=== PATIENT | female | born 1955 | race Caucasian/White ===

== ENCOUNTER 2019-03-04 05:12 | Observation (INO) ==
--- NOTE | 2019-02-19 14:08 | Anesthesiology Consultation ---
Date of Service February 19, 2019 Assessment & Plan (1) Encounter for pre-operative examination: Chart Review Chart Review: Pending: Refer to Additional Notes / Consult section and Patient NOT seen in Pre Admission Testing Consults Requested medical (per surgeon) Teaching & Discussion med teaching by PAT nurse via phone History Surgery Operation Date: 03/04/19 07:00 Proposed Procedures p Laparoscopic Cholecystectomy, Possible Cholanigiogram - Luke Mullins, DO, FACS Height/Weight Height: 5 ft 2.5 in Weight: 61.689 kg Allergies Allergy/AdvReac Type Severity Reaction Status Date / Time No Known Allergies Allergy Verified 02/18/19 11:12 Medications Home Medications Medication Instructions Recorded Confirmed Last Taken amlodipine 5 mg PO QAM 02/18/19 02/18/19 Unknown lisinopril 20 mg PO HS 02/18/19 02/18/19 Unknown [id number] carb-vit K 1 tab PO QAM 02/18/19 02/18/19 Unknown [Women's Multivitamin] Past Medical History Medical History Cervical cancer Hypertension Thyroid nodule BENIGN BIOPSY Past Family History Family History Mother Diabetes Heart disease Cancer Father Diabetes Heart disease Brother Hypertension Stroke Cancer Brother Hypertension Brother Hypertension Brother Hypertension Daughter Breast cancer Past Surgical History Surgical History H/O total hysterectomy History of section History of conization of cervix History of tooth extraction Social History Smoking Status: Current every day smoker tobacco type: cigarettes Smoking cigarettes per day: 20 CIG DAILY Do You Dip or Chew Tobacco: No Hx Alcohol Use: Yes Alcohol type: hard liquor alcohol intake frequency: holidays/special occasions only Hx Substance Use: No substance use type: does not use Testing Laboratory Results Laboratory Tests 01/01/19 09:32 WBC 7.29 Hgb 16.7 H Hct 45.8 Plt Count 277 Laboratory Tests 01/01/19 09:32 Sodium 141 Potassium 3.8 Chloride 108 H Carbon Dioxide 26 BUN 9 Creatinine 0.60 Glucose 113 H TSH 1.150 Electrocardiogram Date: 01/22/19 Findings: + NSR @ (87) NSTWA Other Testing 01/13/[address]:mild cardiac enlargement. mild emphysema. NAD 01/05/19 Carotid Doppler: No HD significant stenosis B/L
[2019-03-04] MEDS ORDERED: LR 15ML/HR IV SCH (06:00)
[2019-03-04] MEDS ORDERED: cefOXitin 2,000 MG in DEXTROSE 5% 50 ML IV SCH (06:00)
[2019-03-04] MEDS ORDERED: LIDOCAINE HCL 2% 2 ML VIAL/AMP(20MG/ML) INFIL ONE (06:20)
[2019-03-04] MEDS ORDERED: NEOSTIGMINE METHYLSULFATE 5 MG/5 ML SYR ONE (06:20)
[2019-03-04] MEDS ORDERED: ROCURONIUM BROMIDE 10 MG/ML 5 ML VIAL ONE (06:20)
[2019-03-04] MEDS ORDERED: PROPOFOL IV EMULSION 10 MG/ML 20 ML VIAL IV ONE (06:20)
[2019-03-04] MEDS ORDERED: GLYCOPYRROLATE 0.2 MG/ML VIAL ONE (06:20)
[2019-03-04] MEDS ORDERED: ONDANSETRON INJ 2 MG/ML 2 ML VIAL ONE (06:20)
[2019-03-04] MEDS ORDERED: DEXAMETHASONE SOD INJ 4 MG/ML VIAL ONE (06:20)
[2019-03-04] MEDS ORDERED: MIDAZOLAM HCL 1 MG/ML 2ML VIAL ONE (06:21)
[2019-03-04] MEDS ORDERED: fentaNYL citrate 100 MCG/2 ML VIAL ONE ×4 (06:21→11:11)
[2019-03-04] MEDS ORDERED: ePHEDrine sulfate 50 MG/ML AMP IV PRN (06:26)
[2019-03-04] MEDS ORDERED: ONDANSETRON INJ 2 MG/ML 2 ML VIAL IV PRN ×2 (06:26→11:17)
[2019-03-04] MEDS ORDERED: ATROPINE SULFATE 0.1 MG/ML 10ML SYR IV PRN (06:26)
[2019-03-04] MEDS ORDERED: fentaNYL citrate 100 MCG/2 ML VIAL IV PRN (06:26)
[2019-03-04] MEDS ORDERED: BUPIVACAINE 0.5 % 5 MG/1 ML MPF 30ML VIAL ONE (06:39)
[2019-03-04] MEDS ORDERED: CONRAY 60% 50 ML VIAL ONE (06:39)
--- NOTE | 2019-03-04 07:06 | History & Physical Bridge Note ---
Date of Service March 04, 2019 History & Physical Bridge Note I have examined the patient, reviewed the History & Physical and in the interval since the performance of the History & Physical I have noted the following changes of clinical significance: no changes noted
[2019-03-04] MEDS ORDERED: ePHEDrine sulfate 50 MG/ML SYR ONE (07:34)
[2019-03-04] MEDS ORDERED: PHENYLEPHRINE 100MCG/ML 5ML SYR ONE (09:50)
--- NOTE | 2019-03-04 10:15 | Operative Report ---
Post Operative Report Pre & Post Diagnosis Operation Date: 03/04/19 07:00 Pre-Op Diagnosis: Cholelithiasis Post-Op Diagnosis: Chronic cholecystitis and cholelithiasis, abdominal adhesions Procedure Operation Date: 03/04/19 07:00 Actual Procedures p Laparoscopic Cholecystectomy, laparoscopic lysis of adhesions- Luke Mullins DO, FELICIA Surgeon Luke Mullins DO, FACS Continuous Process Machine Operator Germania Ortiz Estimated Blood Loss 8 Findings Consistent with Post-Op Diagnosis Significantly inflamed gallbladder filled with stones. Attempted to identify critical view of safety, however it appeared that we are tenting the bile duct. Therefore performed dome down dissection. The gallbladder tore during retraction, and multiple stones were placed in Endo Catch bag and removed. Dissected down to narrowing of the infundibulum. Cystic artery doubly clipped and divided. Rodrigez loaded Endo JOSHUA stapler used to divide gallbladder at the infundibulum. Gallbladder was opened on the back table and appeared to have cystic duct lumen in the staple line. Hemostasis appeared good. The right upper quadrant was irrigated. 10 mm flat TED drain placed. Specimens Gallbladder Drains 10 mm TED drain in gallbladder fossa Anesthesia Type General Complications none Disposition Accompanied Patient To Recovery: No Disposition: Recovery Room Indications 63-year-old female with symptomatic cholelithiasis, plan for laparoscopic cholecystectomy with possible cholangiogram. The risks of the procedure were discussed, all questions were answered, and the patient agreed to proceed with surgery as planned. Description of Procedure The patient was properly identified, consented, and taken to the operating room where she was placed in the supine position. General endotracheal anesthesia was induced. SCDs and a safety belt were placed. Preoperative antibiotics were administered. The patient's abdomen was prepped and draped in the standard sterile fashion. A surgical timeout was performed and all parties were in agreement that this was the correct patient and procedure to be performed and we continued as planned. An incision was made superior and to the left of the umbilicus overlying the rectus muscle and the Veress needle was inserted. Saline drop test confirmed entry into the peritoneum. The abdomen was insufflated with carbon dioxide which the patient tolerated without incident. The abdomen was then entered using the Optiview technique and a 5 mm trocar. The laparoscope was inserted and no damage from initial trocar or Veress needle placement was noted, no gross abnormalities were noted within the 4 quadrants of the abdomen. An 11 mm port was placed in the subxiphoid position and two 5 mm ports were then placed in the right subcostal position. The patient was placed in reverse Trendelenburg position and rotated towards the left. There was some omental adhesions to her anterior abdominal wall from prior surgery and these were taken down with blunt dissection. The gallbladder was significantly inflamed and contracted. Omental adhesions were taken down with blunt dissection and electrocautery. The dome of the gallbladder was retracted towards the left upper quadrant and the infundibulum was retracted toward the right lower quadrant revealing Calot's triangle. Peritoneal attachments were taken down with electrocautery and blunt dissection. During retraction the gallbladder began to tear. The gallbladder appeared to be completely full of stones both large and small. These were placed in an Endo Catch bag and removed through the subxiphoid port. I attempted to identify critical view of safety, but it appeared that we are tenting the common bile duct. Then decided to pe rform a dome down technique. We started dissection of the gallbladder off of the gallbladder fossa starting at the dome of the gallbladder and working away towards the infundibulum. The cystic artery was circumferentially dissected, and was then doubly clipped and divided. We were able to dissect the gallbladder down to its narrowing near the infundibulum. I attempted to tease out the cystic duct, however it appeared to be significantly inflamed in this area. Since the gallbladder continue to tear all the gallstones were removed, I was able to visualize a small punctate opening. I attempted to perform a cholangiogram to this but was unable to feed the catheter through it. Then decided to divide the gallbladder at the infundibulum. The 11 mm port was switched out for a 12 mm port. A rodrigez loaded 45 mm Endo JOSHUA stapler was then used to divide the gallbladder at the infundibulum and cystic duct junction. The gallbladder was placed in an Endo Catch bag and removed. We opened it on the back table and were able to identify narrowing into a lumen that appeared to be the cystic duct. The right upper quadrant was irrigated and hemostasis was found to be good. A 10 mm flat TED drain was placed into the gallbladder fossa and exited through the right subcostal incision. This was secured in place with a 2-0 nylon suture. The subxiphoid port site fascia was closed with 0 Vicryl s uture using the Omer-Elieser device. 5 mm trochars were removed under direct visualization and the abdomen was allowed to collapse. The wound was irrigated, and the skin of all ports was closed with 4-0 Monocryl subcuticular sutures. Dermabond was placed over the wounds and a drain dressing was placed. The patient was extubated in the operating room and taken to the PACU where she recovered without apparent incident. All sponge, instrument and needle counts were correct at the conclusion of the procedure. The patient tolerated the procedure well. The physician's assistant city attorney was present and scrubbed for the entirety of the case and was essential in positioning the patient, prepping and draping, retraction and exposure, driving the laparoscope, removal of the gallbladder, closure the incisions, and placement of the dressings. I attest to the content of the Intraoperative Record and any orders documented therein. Any exceptions are noted below.
--- NOTE | 2019-03-04 11:05 | Anesthesiology Progress Note ---
Date of Service March 04, 2019 Anesthesia Post Procedure Vital Signs Vital Signs: Temp Pulse Pulse Resp BP Pulse Ox 03/04/19 10:45 97.9 F 97 H 19 127/71 94 03/04/19 10:35 88 20 148/78 H 99 03/04/19 10:25 103 H 17 123/88 97 03/04/19 10:17 99.3 F 94 H 18 125/87 94 03/04/19 05:57 97.9 F 81 16 154/96 H 99 Pain Intensity Right Abdomen: Pain Intensity: 1 Transfer of Care Handoff Completed per policy Notes Mental Status: alert / awake / arousable and participated in evaluation Patient Amnestic to Procedure: Yes Nausea / Vomiting: adequately controlled Pain: adequately controlled Airway Patency, RR, SpO2: stable & adequate BP & HR: stable & adequate Hydration State: stable & adequate Anesthetic Complications: no major complications apparent and Pt Satisfied with anesthetic care
[2019-03-04] MEDS ORDERED: MoRPHine SULFATE 2 MG/ML CARP IV PRN (11:17)
[2019-03-04] MEDS ORDERED: OXYCODONE/ACETAMINOPHEN 5mg/325mg TAB PO PRN ×2 (11:17)
[2019-03-04] MEDS ORDERED: ACETAMINOPHEN 325 MG TAB PO PRN (11:17)
[2019-03-04] MEDS ORDERED: MoRPHine SULFATE 4 MG/ML 1 ML CARP\\VIAL IV PRN (11:17)
[2019-03-04] MEDS: LACTATED RINGER'S 1,000 ML IV SCH (12:37)
[2019-03-04] MEDS: cefOXitin 2,000 MG in DEXTROSE 5% 50 ML IV SCH ×2 (14:04→20:11)
[2019-03-05] MEDS: cefOXitin 2,000 MG in DEXTROSE 5% 50 ML IV SCH ×2 (01:29→08:25)
[2019-03-05] MEDS: LACTATED RINGER'S 1,000 ML IV SCH (01:29)
[2019-03-05 07:20] LABS: Basophils # (auto) 0.01 K/uL (0-0.2); Basophils % (auto) 0.1 %; Eosinophils # (auto) 0.02 K/uL (0-0.5); Eosinophils % (auto) 0.1 %; Hematocrit (blood only) 38.3 % (37-47); Hemoglobin 13.4 g/dL (12.0-16.0); Immature Granulocytes # (auto) 0.05 K/uL (0.00-0.02); Immature Granulocytes % (auto) 0.3 %; Lymphocytes # (auto) 1.95 K/uL (1.2-3.4); Lymphocytes % (auto) 12.9 %; Mean Corpuscular Volume 91.4 fL (80-100); Monocytes # (auto) 1.64 K/uL (0.11-0.59); Monocytes % (auto) 10.8 %; Neutrophils % (auto) 75.8 %; Platelet Count 236 K/uL (130-400); RDW Coefficient of Variation 12.2 % (11.5-14.5); RDW Standard Deviation 40.9 fL (36.4-46.3); Red Blood Count 4.19 M/uL (4.2-5.4); White Blood Count 15.17 K/uL (4.8-10.8)
[2019-03-05 07:55] LABS: Albumin Level 3.1 gm/dl (3.4-5.0); BUN Creatinine Ratio 9.8 (10-20); Calcium 9.1 mg/dl (8.5-10.1); Creatinine Clr Calc Pharmacy 79.6 ml/min; Est GFR (African American) 112.7; Est GFR (Non-African American) 97.3; Potassium 3.8 mmol/L (3.5-5.1)
--- NOTE | 2019-03-05 07:56 | Anesthesiology Progress Note ---
Date of Service March 05, 2019 Anesthesia Post Procedure Vital Signs Vital Signs: Temp Pulse Pulse Resp BP BP Pulse Ox 03/05/19 07:00 36.9 C 77 15 149/79 H 98 03/05/19 03:46 36.8 C 86 16 147/63 H 96 03/04/19 23:41 36.8 C 98 H 16 169/69 H 99 03/04/19 19:43 36.7 C 97 H 16 162/73 H 96 03/04/19 15:18 36.3 C L 92 H 16 145/73 H 96 03/04/19 14:09 36.4 C L 86 16 131/74 99 03/04/19 13:09 36.3 C L 90 16 125/67 99 03/04/19 12:08 36.3 C L 89 16 122/72 96 03/04/19 11:43 36.3 C L 89 15 132/76 93 03/04/19 11:10 36.5 C 90 16 132/77 96 03/04/19 10:45 36.6 C 97 H 19 127/71 94 03/04/19 10:35 88 20 148/78 H 99 03/04/19 10:25 103 H 17 123/88 97 03/04/19 10:17 37.4 C 94 H 18 125/87 94 Pain Intensity Right Abdomen: Pain Intensity: 1 Abdomen: Pain Intensity: 5 Notes Mental Status: alert / awake / arousable and participated in evaluation Nausea / Vomiting: adequately controlled Pain: adequately controlled Airway Patency, RR, SpO2: stable & adequate BP & HR: stable & adequate Hydration State: stable & adequate
[2019-03-05 07:58] LABS: Bilirubin Direct 0.2 mg/dl (0-0.2); Bilirubin,Total 0.7 mg/dl (0.2-1); Total Protein 6.3 gm/dl (6.4-8.2)
[2019-03-05] MEDS ORDERED: AMLODIPINE BESYLATE 5 MG TAB PO SCH ×2 (09:00→10:45)
--- NOTE | 2019-03-05 10:43 | Surgery Progress Note ---
Date of Service March 05, 2019 Assessment & Plan (1) S/P cholecystectomy: POD#1 difficult laparoscopic cholecystectomy Tbili: 0.7 WBC 15, not unexpected post operatively. Patient afebrile and clinically looks well Tolerating advancement in diet without n/v/pain TED drain serosangineous, will keep in place with plans to remove in clinic next saturday will plan for discharge to home today Supervising Physician Co-Signing Physician Notes Patient seen and examined, agree with above. POD #1 lap scopic cholecystectomy for severe chronic cholecystitis, doing well. Vital signs stable, abdomen soft appropriately tender to palpation. TED with serosanguineous drainage. WBC elevated with postop, remainder of labs are unremarkable including total bilirubin. Discharged home, follow-up on Saturday for TED drain removal. Activity restrictions and wound care instructions reviewed. Return precautions given, call with questions or concerns, Subjective Patient has been tolerating a clear liquid diet without issues. Denies any nausea/vomiting. Has some post surgical pain that is well managed with oral medications. Has been up and ambulating the halls frequently. Physical Exam Physical Exam: awake/alert Gastrointestinal (Abdomen): Inspection/Auscultation: + abdominal surgical incision (c/d/i with dermabond) and + abdominal surgical drain present (serosangenous output); abdomen not distended Percussion/Palpation: abdomen soft; abdomen nontender Results & Data Vital Signs (Past 12 Hours) Vital Signs Temp Pulse Resp BP BP Pulse Ox 03/05/19 07:00 36.9 C 77 15 149/79 H 98 03/05/19 03:46 36.8 C 86 16 147/63 H 96 03/04/19 23:41 36.8 C 98 H 16 169/69 H 99 PG Care Time/CCT Total # of Minutes Spent Total Time Spent with Patient: Total time spent is greater than 50% in coordination of care (as documented) at patient's floor/unit and/or counseling patient:
--- NOTE | 2019-03-05 11:29 | Discharge Summary ---
Date of Service March 05, 2019 Principal Diagnosis S/P laparoscopic cholecystectomy Cholelithiasis Hypertension Discharge Exam awake/alert/conversational Respiratory normal respiratory effort; no respiratory distress Cardiovascular Rate/Rhythm: regular rate Gastrointestinal (Abdomen) Inspection/Auscultation: + abdominal surgical incision (c/d/i with dermabond overtop) and + abdominal surgical drain present (serosang. output); abdomen not distended Percussion/Palpation: abdomen soft; abdomen nontender Discharge Data Allergies Allergy/AdvReac Type Severity Reaction Status Date / Time No Known Allergies Allergy Verified 03/04/19 05:50 Procedures Performed Operation Date: 03/04/19 07:00 Actual Procedures p Laparoscopic Cholecystectomy(Not Applicable) - Luke Mullins DO, FACS Hospital Course (1) S/P cholecystectomy: This is a 63y F who presented to the [facility] on 03/04/19 for a planned laparoscopic cholecystectomy with a known history of symptomatic cholelithiasis. On 03/04 patient underwent a laparoscopic cholecystectomy with Dr. Mullins where intraoperatively the patient's gallbladder was found to be contracted, inflamed, and full of stones. The patient tolerated the procedure well, see operative report for full details. The patient was admitted overnight for observation with a TED drain in place. On POD#0 she remained on perioperative antibiotics, IVF, a clear liquid diet, and pain medication prn. On POD#1 patient endorsed that she was feeling well, pain well controlled with oral medication, and surgical incisions were clean/dry/intact. Patient denied nausea/vomiting and her abdominal exam was benign. Her Tbili was 0.7. Patients diet was advanced to regular and IVF discontinued. Her home blood pressure medication was resumed for history of hypertension. TED drain remained serosanguineous. Patient was given instructions on how to care for her TED drain at home and was asked to follow up in clinic this Saturday03/09/19 for drain removal. She was deemed stable for discharge to home on 03/05/19. Total Time Total Time Spent Total Time Spent (In Minutes): 15 Discharge Plan Discharge Items Patient Disposition: Home - Self-Care Reason For Visit: Cholelithiasis Discharge Diagnosis: laparoscopic cholecystectomy Activity: Per Instructions section Lifting: No more than 10 pounds Bathing Comment: you may shower starting today Exercise/Sports: Wait until after follow-up appointment Exercise Comment: light activity for 3 weeks Driving/Machine Use: do not drive while taking narcotics for pain Non-emergency contact: Surgeon Call non-emergency contact if: you have any medication questions, your symptoms worsen, your pain is worsening, your pain is unusual for you, you have a fever, your temperature is above 101.5, your wound has increased redness, your wound has increased drainage and your wound pain has increased Follow-up/Referrals: Jessi Palencia DO [Primary Care Provider] - Luke Mullins, FELICIA BARRAGAN [Physician] - (Please call surgery clinic to make an appointment with the nurse on Saturday03/09/19 to have your drain removed. Then you should schedule an appt. to see Dr. Turner's thereafter within 2 weeks. You may call the office sooner if you have any questions/concerns.) Diet: Regular Addtl Attending Provider Instructions: You will be discharged with a surgical drain in place. Please follow the instructions/teaching you received in the hospital for care of this drain at home. Please call the surgery clinic to schedule an appointment to have this drain removed on 03/09/19 Pending Studies at Discharge: No Stand-Alone Forms: My [facility] [employer], Opioid Pain Management Medications and DC Order Prescriptions: New oxycodone-acetaminophen [Percocet] 5-325 mg tablet 1 - 2 tab PO .every 4-6 hours PRN (Reason: pain, for initial therapy) Qty: 15 RF: 0 Continued lisinopril 20 mg tablet 20 mg PO DAILY Qty: 90 RF: 1 apple cider vinegar 600 mg capsule 600 mg PO DAILY Qty: 90 RF: 0 Women's Multivitamin 18 mg-400 mcg- 500 mg-50 mcg Tablet 1 tab PO QAM RF: 0 amlodipine 5 mg tablet 5 mg PO QAM RF: 0 Discharge Orders: Discharge Order (Routine); Ordered 03/05/19 Ordered By: Germania Alcaraz/Other Patient Handouts: Tube Donovan [place] Drainage Care Admission Data Admit Date/Time: 03/04/19 10:19 Attending Provider: Luke Mullins Admit Provider: Luke Mullins Primary Care Provider: Jessi Palencia
== END 2019-03-05 11:50 | disposition home or self-care (01) ==
LOC: ASU 05:12 → 3W 05:12
DX: K80.12 Calculus of gallbladder with acute and chronic cholecystitis without obstruction; Z79.899 Other long term (current) drug therapy; I10 Essential (primary) hypertension

== ENCOUNTER 2019-12-23 16:36 | Inpatient (IN) ==
[2019-12-23] MEDS ORDERED: CEFEPIME 2,000 MG/20 ML VIAL IV STA (16:58)
[2019-12-23] MEDS ORDERED: SODIUM CHLORIDE 0.9% 1000ML 1,000 ML IV ONE (16:58)
[2019-12-23] MEDS ORDERED: NICOTINE 21 MG/24 HR TDSY TD STA (17:08)
[2019-12-23] MEDS ORDERED: KETOROLAC TROMETHAMINE 15 MG/ML VIAL IV STA (17:08)
--- NOTE | 2019-12-23 17:14 | Emergency Department Note ---
Impression & Plan RUQ abdominal pain, Jaundice, Biliary obstruction, Elevated liver enzymes ED Provider Note NAME: NELA BOB AGE: 64 SEX: F : 1955 ARRIVES VIA: Walk-In INFORMANT: [Patient][visit notes] ED PROVIDER(S): [Gus Christianson MD] CHIEF COMPLAINT: Abdominal pain HISTORY OF PRESENT ILLNESS: Patient is a 64-year-old female who states that last year in the fall, she had her gallbladder removed. Since that timeframe, she has had bouts intermittently of epigastric pain and nausea. She states that yesterday, she developed the pain in the morning after drinking some coffee. The pain was severe at a 10/10, the pain was crampy, sharp. The pain went to her shoulder blades. She was nauseated but did not vomit. The pain lasted all day. This morning, she woke up with some mild right upper quadrant pain and she still has some mild pain in the back. The severe pain that was gone. She saw her doctors office and a CT of the abdomen pelvis was done. The CT shows the possibility of acute cholecystitis with a common bile duct obstruction. She was sent to the ED. There has been no shortness of breath, no increased cough. She was told by her doctors office today that she may have had a low-grade fever at their visit. She herself had not noticed fever at home. No sweats. No diarrhea. No urinary complaints. The patient has not noticed any yellowness to her skin. She does admit that her gallbladder surgery was somewhat complicated and that her gallbladder disintegrated during the surgery. REVIEW OF SYSTEMS: See HPI for pertinent positives and negatives. A total of ten systems were reviewed and were otherwise negative. PMHx/PSHx: See Below SOCIAL HISTORY: See Below. PHYSICAL EXAM: GENERAL: Patient is in no acute distress. HEENT: No acute trauma, normocephalic atraumatic, mucous membranes moist, no nasal congestion, no scleral icterus. NECK: No stridor, no adenopathy, no meningismus, trachea is midline. LUNGS: Clear to auscultation bilaterally, no wheeze, no rhonchi, breath sounds equal. HEART: Mildly tachycardic, subtle systolic murmur, normal rhythm. ABDOMEN: Soft, mildly tender in the right upper quadrant, bowel sounds positive, no hernias, no peritonitis. EXTREMITIES: No cyanosis or edema, full range of motion of all the joints without pain or difficulty, no signs for acute trauma. NEUROLOGIC: Oriented x 3, no acute motor or sensory deficits, no focal weakness. SKIN: No rash, mild jaundice, no diaphoresis. DIFFERENTIAL DIAGNOSIS: Appendicitis, ovarian cyst, ovarian torsion, TOA, PID, infections, diverticulitis, UTI, obstruction, mesenteric ischemia, aortic pathology, inflammatory bowel disease, renal colic, PUD, pancreatitis, biliary pathology, hernia, volvulus, constipation, as well as other pathologies. EMERGENCY DEPARTMENT COURSE/PROCEDURES: ECG: Indication was epigastric pain. The ECG shows a sinus tachycardia with a rate of 101. There is poor R wave progression. No ST elevation, no PVCs. The QTc is 451. Continuous Cardiac Monitoring: An order was placed for continuous cardiac monitoring. The monitor shows a rate of 102 with sinus tachycardia. MEDICAL DECISION MAKING: Lab work from earlier today showed a white count of 15.9 consistent with infection. There was no anemia. There was a normal platelet count. No significant electrolyte abnormality or kidney failure. Liver enzymes were elevated, bilirubin was almost 7, alk phos was elevated. Outpatient CT scan showed biliary obstruction from a common bile duct stone and possible cholangitis. On the ED testing, there was no evidence for pancreatitis. Cardiac enzyme testing x1 is not consistent with acute cardiac injury. Lactic acid level was not elevated making sepsis less likely. EKG showed a sinus tachycardia, no acute ischemia. Chest x-ray did not show pneumonia, free air or mediastinal widening. The patient received IV saline for hydration. She received IV cefepime as empiric antibiotic coverage. She was given IV Toradol for pain. She was given a nicotine patch as she is a smoker. The patient presents with epigastric and right upper quadrant abdominal pain. She was jaundiced on exam. She has findings of biliary obstruction based on her outpatient CT scan. There is concern for cholangitis as well. The patient requires a hospital stay. I did contact general surgery. For now, this is a medical admission with a GI consult and surgical consult. The on-call hospitalist was consulted. Case management has been involved. The patient is aware of all her findings. Past Med/Surg History Medical History Cervical cancer diagnosed in --sx Hypertension Right sided abdominal pain Thyroid nodule Surgical History History of section History of conization of cervix History of dilatation and curettage History of root canal procedure History of total hysterectomy with bilateral salpingo-oophorectomy (BSO) History of wisdom tooth extraction S/P fine needle aspiration (02/03/19) R thyroid nodule, benign S/P laparoscopic cholecystectomy (03/04/19) 03/04/19 with marge Barrett lysis of adhesions Family History Mother Coronary heart disease Heart disease Myocardial infarction Cancer Family history of diabetes mellitus Father Coronary heart disease Heart disease Myocardial infarction Family history of diabetes mellitus Brother Cancer Hypertension Stroke Family history of pancreatic cancer Brother Hypertension Brother Coronary heart disease Hypertension Brother Coronary heart disease Myocardial infarction Hypertension Daughter Ovarian cancer Myocardial infarction Breast cancer Family/Other Family hx of colon cancer nephew Other No family history of adverse response to anesthesia Social History Preferred Language: Kyrgyz Communication Ability: Effective 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 Beliefs That Will Affect Care: None marital status: Current Living Situation: Family current occupational status: retired Other Information That Helps Us Care for You: No Feels Safe at Home: Yes Safety Concerns: Feels Safe At This Time Smoking Status: Current every day smoker Tobacco Type: cigarettes ; Cigarettes Per Day: 20 a day ; Do You Dip or Chew Tobacco: No ; Second Hand Exposure: No ; Tobacco Cessation Education Requested by Patient: No Hx Alcohol Use: Yes Alcohol type: hard liquor Alcohol Intake Frequency: Rarely Hx Substance Use: No Seatbelt Use: always Allergies Allergies Allergy/AdvReac Type Severity Reaction Status Date / Time No Known Allergies Allergy Verified 12/23/19 14:15 Home Meds Home Medications Medication Instructions Recorded Confirmed [id number] 18 mg-FA 400 1 tab PO QAM 03/26/19 12/23/19 mcg-calcium 500 mg-vit K 50 mcg tablet apple cider vinegar 600 mg PO BID 07/07/19 12/23/19 Previous Rx's Medication Instructions Recorded lisinopril 20 mg tablet 20 mg PO QAM #90 tab 10/02/19 amlodipine 5 mg tablet 5 mg PO QAM #90 tab 10/29/19 Results & Data (ED) Vital Signs Vital Signs - 24 hr 12/23/19 16:39 12/23/19 17:34 12/23/19 17:50 Temperature 37.2 C Temperature Source Oral Pulse Rate 127 H 113 H 113 H Pulse Rate from SpO2 Sensor Respiratory Rate 20 20 17 Respiratory Effort / Characteristics Non-Labored Respiratory Depth Normal Respiratory Pattern Regular Blood Pressure 156/94 H 159/77 H Blood Pressure Mean 114 121 Blood Pressure Position Sitting Pulse Oximetry 96 Oxygen Delivery Method Room Air Sepsis Recent Fever Within 48 Hours No Sepsis New/Unexplained Change in Mental Status No Sepsis Action Taken by Nursing No Action Required 12/23/19 18:00 12/23/19 18:01 Temperature Temperature Source Pulse Rate 99 H 103 H Pulse Rate from SpO2 Sensor 103 H Respiratory Rate 17 19 Respiratory Effort / Characteristics Respiratory Depth Respiratory Pattern Blood Pressure 156/67 H Blood Pressure Mean 112 Blood Pressure Position Pulse Oximetry 98 Oxygen Delivery Method Sepsis Recent Fever Within 48 Hours Sepsis New/Unexplained Change in Mental Status Sepsis Action Taken by [facility] Medications Current Medication List: was personally reviewed by me Laboratory Data Attestation: I reviewed the patient's lab results. Result diagrams: 12/23/19 20:19 Lab Results 12/23/19 12/23/19 12/23/19 Range/Units 17:30 17:30 17:30 Lactate 1.2 (0.4-2.0) mmol/L Magnesium 1.9 (1.8-2.4) mg/dl Ammonia < 10.0 L (11-32) umol/L Troponin I < 0.015 (0-0.045) ng/ml Lipase 107 (73-393) U/L Specimen Hemolysis Administered Medications Sodium Chloride (Nss 1000ml) 1,000 mls @ 125 mls/hr IV .Q8H SARAH Stop: 01/22/20 20:06 Last Admin: 12/23/19 20:37 Dose: 125 mls/hr Documented by: [id number] Pantoprazole Sodium 40 mg/ (Syringe) 10 mls @ 5 mls/min IV BID SARAH Stop: 01/22/20 20:59 Last Admin: 12/23/19 20:34 Dose: 5 mls/min Documented by: [id number] Nicotine (Nicoderm Cq) 21 mg TD QAM SARAH Stop: 01/22/20 20:06 Last Admin: 12/23/19 20:36 Dose: 21 mg Documented by: [id number] Discontinued Medications Sodium Chloride (Nss 1000ml) 1,000 mls @ 999 mls/hr IV .Q1H1M ONE Stop: 12/23/19 17:58 Last Infusion: 12/23/19 18:32 Dose: 0 mls/hr Documented by: [id number] Admin: 12/23/19 17:25 Dose: 999 mls/hr Documented by: [id number] Cefepime HCl (Maxipime) 2,000 mg in 20 mls @ 5 mls/min IV NOW STA; Protocol Stop: 12/23/19 17:01 Last Admin: 12/23/19 17:27 Dose: 5 mls/min Documented by: [id number] Piperacillin Sod/Tazobactam (Sod 3.375 gm/ Dextrose) 115 mls @ 230 mls/hr IV NOW ONE; Protocol Stop: 12/23/19 20:44 Last Infusion: 12/23/19 21:17 Dose: 0 mls/hr Documented by: [id number] Admin: 12/23/19 20:36 Dose: 230 mls/hr Documented by: [id number] Ketorolac Tromethamine (Toradol) 15 mg IV NOW STA Stop: 12/23/19 17:09 Last Admin: 12/23/19 17:27 Dose: 15 mg Documented by: [id number] Nicotine (Nicoderm Cq) 21 mg TD NOW STA Stop: 12/23/19 17:09 Last Admin: 12/23/19 17:26 Dose: 21 mg Documented by: [id number] Imaging Data Radiologist's Impression: XR chest 1V portable CLINICAL HISTORY: epig pain pain COMPARISON STUDY: No previous studies for comparison. FINDINGS: The bones soft tissues and hemidiaphragms are normal. The cardiomediastinal silhouette is normal. The lungs are clear. The pulmonary vasculature is normal. IMPRESSION: Negative chest. CT SCAN OF THE ABDOMEN AND PELVIS WITH IV CONTRAST CLINICAL HISTORY: Right upper quadrant abdominal pain. COMPARISON STUDY: Abdominal ultrasound dated 01/26/2019. TECHNIQUE: Following the IV administration of 94 cc of Optiray 320, CT scan of the abdomen and pelvis is performed from the lung bases to the proximal femora. Images are reviewed in the axial, sagittal, and coronal planes. IV contrast was administered without complication. A dose lowering technique was utilized adhering to the principles of ALARA. CT DOSE: 518.95 mGycm FINDINGS: Lung bases: The heart is top normal in size and without pericardial effusion. Emphysematous changes suspected at the lung bases. There is no airspace consolidation or pleural effusion. There is a small hiatal hernia. Liver: The contrast-enhanced liver is normal in size, contour, and attenuation. There is moderate intrahepatic biliary ductal dilatation. The hepatic veins and portal veins are patent. Gallbladder: Surgically absent noting clips in the gallbladder fossa. The common bile duct is dilated measuring up to 13 mm. This is distended to the head of the pancreas. Inflammatory stranding is present around the common bile duct near the hepatic hilum. Spleen: Normal in size and attenuation. Pancreas: Mildly atrophic and grossly unremarkable. The pancreatic duct is normal in caliber. Adrenal glands: Unremarkable. Kidneys: The contrast enhanced kidneys are normal in size and without hydronephrosis. The kidneys enhance symmetrically. A 7 mm cyst arises from the lower pole on the left. A 2.9 cm cyst is seen in the upper pole of the right. Abdominal vasculature: The abdominal aorta is normal in course and caliber noting advanced atherosclerotic calcification. Bowel: The small bowel and colon are normal in course and caliber there is moderate to advanced colonic diverticulosis without CT evidence of acute diverticulitis. Mild colonic fecal retention is observed. No bowel obstruction is seen. The appendix is well-visualized and normal. Peritoneum: There is no intraperitoneal free air or abdominal ascites. Lymphadenopathy: None. Pelvic viscera: The bladder is decompressed and grossly unremarkable. The uterus is surgically absent. No adnexal lesion is seen. Skeletal structures: The skeletal structures are osteopenic. Moderate lumbosacral spondylosis is observed. There is a minimal superior endplate compression deformity of L4. No lytic or blastic lesions are seen. Sclerotic change is noted at the pubic symphysis. IMPRESSION: 1. The gallbladder is surgically absent and there is moderate intrahepatic dilatation as well as dilatation of the common bile duct. The appearance is con cerning for obstruction and choledocholithiasis is not excluded. MRCP could be considered for further assessment. 2. There is mild inflammatory stranding identified around the common bile duct at the hepatic hilum. Correlate clinically for evidence of infection. 3. Moderate to advanced colonic diverticulosis without CT evidence of acute diverticulitis. 4. Additional findings as above. Blood Pressure Blood Pressure Findings: Elevated blood pressure Blood Pressure Disposition: further management by hospitalist Discharge Plan Visit Data *Final* Discharge Date/Time: 12/23/19 19:29 Chief Complaint: Abdominal Pain Stated Complaint: SENT FROM RAD, ENLARGED LIVER,GALLSTONE IN BILE DU ED Provider: Gus Christianson Discharge Problem: RUQ abdominal pain, Jaundice, Biliary obstruction, Elevated liver enzymes Patient Disposition: Admitted As Inpatient Condition: Good Discharge Instructions Interventions: ED Discharge Assessment Last Done: 12/23/19 19:29
--- NOTE | 2019-12-23 17:14 | XRay Report ---
XR chest 1V portable CLINICAL HISTORY: epig pain pain COMPARISON STUDY: No previous studies for comparison. FINDINGS: The bones soft tissues and hemidiaphragms are normal. The cardiomediastinal silhouette is n ormal. The lungs are clear. The pulmonary vasculature is normal. IMPRESSION: Negative chest. ACT 112: Negative or not required by law. The above report was generated using voice recognition software. It may contain grammatical, syntax or spelling errors. Electronically signed by: Ab Crisostomo M.D. 12/23/2019 5:12 PM
--- NOTE | 2019-12-23 18:13 | History & Physical Report ---
Date of Service December 23, 2019 Assessment & Plan (1) Cholangitis: The possibility of cholangitis patient be put on Zosyn therapy cultures will be obtained as further concern for microlithiasis or choledocholithiasis a GI consult be undertaken for possible ERCP patient has objective signs , she also has bili of 6.2 and elevated transaminases (2) Choledocholithiasis: (3) Hypertension: Patient typically takes amlodipine and lisinopril these will be continued if n.p.o. will be continued with a small sip of water (4) DVT prophylaxis: SCDs for DVT prevention History of Present Illness Primary Care Provider: Jessi Palencia DO 64-year-old female who states that last year in the fall, she had her gallbla dder removed. Since that timeframe, she has had bouts intermittently of epigastric pain and nausea. She states that yesterday, she developed the pain in the morning after drinking some coffee. The pain was severe at a 10/10, the pain was crampy, sharp. The pain went to her shoulder blades. She was nauseated but did not vomit. The pain lasted all day. This morning, she woke up with some mild right upper quadrant pain and she still has some mild pain in the back. The severe pain that was gone. She saw her doctors office and a CT of the abdomen pelvis was done. The CT shows the possibility of acute cholecystitis with a common bile duct obstruction. She was sent to the ED. There has been no shortness of breath, no increased cough. She was told by her doctors office today that she may have had a low-grade fever at their visit. She herself had not noticed fever at home. No sweats. No diarrhea. No urinary complaints. The patient has not noticed any yellowness to her skin. She does admit that her gallbladder surgery was somewhat complicated and that her gallbladder disintegrated during the surgery. Allergies Allergy/AdvReac Type Severity Reaction Status Date / Time No Known Allergies Allergy Verified 12/23/19 14:15 Home Medications Home Medications Medication Instructions Recorded Confirmed Type [id number] 18 mg-FA 400 1 tab PO QAM 03/26/19 12/23/19 History mcg-calcium 500 mg-vit K 50 mcg tablet apple cider vinegar 600 mg PO BID 07/07/19 12/23/19 History lisinopril 20 mg tablet 20 mg PO QAM #90 tab 10/02/19 12/23/19 Rx amlodipine 5 mg tablet 5 mg PO QAM #90 tab 10/29/19 12/23/19 Rx Past Med/Surg History Medical History (Updated 12/23/19 @ 18:06 by Angel Sim MD) Cervical cancer diagnosed in --sx Hypertension Right sided abdominal pain Thyroid nodule Surgical History History of section History of conization of cervix History of dilatation and curettage History of root canal procedure History of total hysterectomy with bilateral salpingo-oophorectomy (BSO) History of wisdom tooth extraction S/P fine needle aspiration (02/03/19) R thyroid nodule, benign S/P laparoscopic cholecystectomy (03/04/19) 03/04/19 with marge Barrett lysis of adhesions Family History Mother Coronary heart disease Heart disease Myocardial infarction Cancer Family history of diabetes mellitus Father Coronary heart disease Heart disease Myocardial infarction Family history of diabetes mellitus Brother Cancer Hypertension Stroke Family history of pancreatic cancer Brother Hypertension Brother Coronary heart disease Hypertension Brother Coronary heart disease Myocardial infarction Hypertension Daughter Ovarian cancer Myocardial infarction Breast cancer Family/Other Family hx of colon cancer nephew Other No family history of adverse response to anesthesia Social History Preferred Language: Honduran Communication Ability: Effective Insurance Verify Rep Required: No Beliefs That Will Affect Care: None marital status: Current Living Situation: Family current occupational status: retired Feels Safe at Home: Yes Smoking Status: Current every day smoker Tobacco Type: cigarettes ; Cigarettes Per Day: 20 a day ; Second Hand Exposure: Yes (parents smoked) ; Hx Alcohol Use: No Hx Substance Use: No Seatbelt Use: always Review of Systems Review of Systems: Mild distress and fatigue no headache, blurry or double vision no speech or swallowing issues no chest pain, pressure or palpitations no shortness of breath, cough or wheezes no abdominal pain, nausea or vomiting, diarrhea or constipation no dysuria, hematuria or frequency no focal joint pain or swelling no back pain, CVA tenderness or radicular pain no bruising, bleeding or rashes no focal signs of weakness or numbness or altered sensation no complaints or anxiety or depression. Physical Exam Physical Exam: The patient appeared well nourished and normally developed. Vital signs as documented. Head exam is normocephalic atraumatic no scleral icterus Neck is without JVD, thyromegaly, or carotid bruits. Lungs are clear to auscultation, no focal loss of breath sounds Cardiac exam, Rhythm is regular.. No murmurs, rubs or gallops. Abdominal exam reveals normal bowel sounds, soft non tender, no masses Extremities are nonedematous and both pedal pulses are normal. Neurologic exam is alert and oriented, no focal loss of strength or sensation Skin is without bruises or rashes Psychologically is without concerns for anxiety or depression Results & Data Results & Data ([facility]) Vital Signs (Past 12 Hours) Vital Signs Temp Pulse Resp BP Pulse Ox 12/23/19 16:39 99.0 F 127 H 20 156/94 H 96 PG Care Time/CCT Total # of Minutes Spent Total Time Spent with Patient: Total time spent is greater than 50% in coordination of care (as documented) at patient's floor/unit and/or counseling patient: Coding Diagnoses Cholangitis K83.09 Choledocholithiasis K80.50 Hypertension I10 DVT prophylaxis Z29.9
[2019-12-23 18:25] LABS: Lipase 107 U/L (73-393); Magnesium 1.9 mg/dl (1.8-2.4); Troponin I < 0.015 ng/ml (0-0.045)
[2019-12-23] MEDS ORDERED: ONDANSETRON INJ 2 MG/ML 2 ML VIAL IV PRN (20:07)
[2019-12-23] MEDS ORDERED: MoRPHine SULFATE 4 MG/ML 1 ML CARP\\VIAL IV PRN (20:07)
[2019-12-23] MEDS ORDERED: MoRPHine SULFATE 2 MG/ML CARP IV PRN (20:07)
[2019-12-23] MEDS ORDERED: PIPERACILL/TAZOBAC CONSULT ACTIVE PRN (20:07)
[2019-12-23] MEDS ORDERED: PROMETHAZINE HCL 12.5 MG in SODIUM CHLORIDE 0.9% 50 ML IV PRN (20:07)
[2019-12-23] MEDS ORDERED: PIPERACILLIN/TAZOBACTAM 3.375 GM in DEXTROSE 5% 100 ML IV ONE (20:15)
[2019-12-23] MEDS: PANTOprazole 40 MG in SYRINGE 0 ML IV SCH (20:34)
[2019-12-23] MEDS: NICOTINE 21 MG/24 HR TDSY TD SCH (20:36)
[2019-12-23] MEDS: SODIUM CHLORIDE 0.9% 1000ML 1,000 ML IV SCH (20:37)
--- NOTE | 2019-12-23 20:48 | Surgery Consultation ---
Date of Consultation December 23, 2019 Assessment & Plan (1) Choledocholithiasis: 64-year-old female status post cholecystectomy 9 months ago, now with likely choledocholithiasis. No surgical intervention indicated Appreciate medicine admitting this patient GI consultation for ERCP versus MRCP Surgery will follow peripherally, call with questions or concerns (2) S/P laparoscopic cholecystectomy: History of Present Illness Attending Physician: Angel Sim MD History of Present Illness General surgery consulted for choledocholithiasis with history of cholecys tectomy. 64-year-old female well-known to me presented to her primary care provider feeling sick with significant abdominal pain in her right upper quadrant. I performed a cholecystectomy on her back in February 2019. We perform the surgery laparoscopically but it was a very difficult surgery. She did well after the surgery and had no complications. She was doing well and in her usual state of health when she started having abdominal pain. She was noted to be slightly jaundiced. She had outpatient labs and CT scan performed which showed biliary ductal dilatation with history of cholecystectomy. Suspected obstruction. The bile duct appeared inflamed and could represent cholangitis. She was referred to the emergency department. I was called by Dr. Christianson from the emergency department for consultation. Allergies Allergy/AdvReac Type Severity Reaction Status Date / Time No Known Allergies Allergy Verified 12/23/19 14:15 Home Medications Home Medications Medication Instructions Recorded Confirmed Type upgjhbiu-swu-xfsw 18 mg-FA 400 1 tab PO QAM 03/26/19 12/23/19 History mcg-calcium 500 mg-vit K 50 mcg tablet apple cider vinegar 600 mg PO BID 07/07/19 12/23/19 History lisinopril 20 mg tablet 20 mg PO QAM #90 tab 10/02/19 12/23/19 Rx amlodipine 5 mg tablet 5 mg PO QAM #90 tab 10/29/19 12/23/19 Rx Patient History Family History Mother Coronary heart disease Heart disease Myocardial infarction Cancer Family history of diabetes mellitus Father Coronary heart disease Heart disease Myocardial infarction Family history of diabetes mellitus Brother Cancer Hypertension Stroke Family history of pancreatic cancer Brother Hypertension Brother Coronary heart disease Hypertension Brother Coronary heart disease Myocardial infarction Hypertension Daughter Ovarian cancer Myocardial infarction Breast cancer Family/Other Family hx of colon cancer nephew Other No family history of adverse response to anesthesia Social History Preferred Language: Citizen Of The [place] Communication Ability: Effective 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 Beliefs That Will Affect Care: None marital status: Current Living Situation: Family current occupational status: retired Other Information That Helps Us Care for You: No Feels Safe at Home: Yes Safety Concerns: Feels Safe At This Time Smoking Status: Current every day smoker Tobacco Type: cigarettes ; Cigarettes Per Day: 20 a day ; Do You Dip or Chew Tobacco: No ; Second Hand Exposure: No ; Tobacco Cessation Education Requested by Patient: No Hx Alcohol Use: Yes Alcohol type: hard liquor Alcohol Intake Frequency: Rarely Hx Substance Use: No Seatbelt Use: always Review of Systems Review of Systems: All systems reviewed & are unremarkable except as noted in HPI & below Physical Exam Constitutional: WD/WN, vitals as above no acute distress Eyes: sclerae not anicteric ENMT: external ear and nose normal, oropharynx normal Neck: trachea midline, no thyromegaly Respiratory: normal respiratory effort, lungs clear to auscultation Cardiovascular: RRR, no murmur, no edema Gastrointestinal (Abdomen): Inspection/Auscultation: + abdominal surgical scar Percussion/Palpation: + abdomen tender (Mild tenderness to palpation the right upper quadrant) and abdomen soft; no guarding and abdomen not rigid Musculoskeletal: no cyanosis or clubbing, extremities motor strength 5/5 Skin: no rashes, warm and dry + jaundice Neurologic: PERRL, EOMI, accommodation nl, no face palsy, no dysarthria Psychiatric: A+Ox3, euthymic affect Lymphatic: no cervical or axillary lymphadenopathy Results & Data Vital Signs (Past 12 Hours) Vital Signs Temp Pulse Pulse Resp BP BP Pulse Ox 12/23/19 20:08 36.9 C 102 H 18 153/92 H 97 12/23/19 19:29 98 H 18 136/88 97 12/23/19 18:31 114 H 22 98 12/23/19 18:30 104 H 24 165/97 H 99 12/23/19 18:01 103 H 19 98 12/23/19 18:00 99 H 17 156/67 H 12/23/19 17:50 113 H 17 12/23/19 17:34 113 H 20 159/77 H 12/23/19 16:39 37.2 C 127 H 20 156/94 H 96 Laboratory Results Laboratory Results - last 24 hr 12/23/19 12/23/19 12/23/19 17:30 17:30 17:30 Sodium Potassium Chloride Carbon Dioxide Anion Gap BUN Creatinine Est Cr Clr Drug Dosing Est GFR ( Amer) Est GFR (Non-Af Amer) BUN/Creatinine Ratio Glucose Lactate 1.2 Calcium Magnesium 1.9 Total Bilirubin AST ALT Alkaline Phosphatase Ammonia < 10.0 L Troponin I < 0.015 Total Protein Albumin Globulin Albumin/Globulin Ratio Lipase 107 Specimen Hemolysis 12/23/19 20:19 Sodium Pending Potassium Pending Chloride Pending Carbon Dioxide Pending Anion Gap Pending BUN Pending Creatinine Pending Est Cr Clr Drug Dosing Pending Est GFR ( Amer) Pending Est GFR (Non-Af Amer) Pending BUN/Creatinine Ratio Pending Glucose Pending Lactate Calcium Pending Magnesium Total Bilirubin Pending AST Pending ALT Pending Alkaline Phosphatase Pending Ammonia Troponin I Total Protein Pending Albumin Pending Globulin Pending Albumin/Globulin Ratio Pending Lipase Specimen Hemolysis Diagnostic Findings [place], [place] [phone] CT Scan Report Patient: NELA BOB Date: 12/23/19 MR#: [id number]: [address] [place] [address] Acct ID:[id number]: Date: [address] [place] [address] Zip: [place] [address] Age: 64Location: [place] Sex: F Room/Bed: Att Phy: Volodymyr Laguna CRNPDiagnosis: RUQ PAIN, FEVER, R50.9,R10.11 Danna Phy: Jessi Palencia, DOService Date: 12/23/19 Fam Phy:Interpreting Phy: Gus Cee MD Admit Phy: Ordering Phy: Volodymyr Laguna CRNP cc: ~ CT SCAN OF THE ABDOMEN AND PELVIS WITH IV CONTRAST CLINICAL HISTORY: Right upper quadrant abdominal pain. COMPARISON STUDY: Abdominal ultrasound dated 01/26/2019. TECHNIQUE: Following the IV administration of 94 cc of Optiray 320, CT scan of the abdomen and pelvis is performed from the lung bases to the proximal femora. Images are reviewed in the axial, sagittal, and coronal planes. IV contrast was administered without complication. A dose lowering technique was utilized adhering to the principles of ALARA. CT DOSE: 518.95 mGycm FINDINGS: Lung bases: The heart is top normal in size and without pericardial effusion. Emphysematous changes suspected at the lung bases. There is no airspace consolidation or pleural effusion. There is a small hiatal hernia. Liver: The contrast-enhanced liver is normal in size, contour, and attenuation. There is moderate intrahepatic biliary ductal dilatation. The hepatic veins and portal veins are patent. Gallbladder: Surgically absent noting clips in the gallbladder fossa. The common bile duct is dilated measuring up to 13 mm. This is distended to the head of the pancreas. Inflammatory stranding is present around the common bile duct near the hepatic hilum. Spleen: Normal in size and attenuation. Pancreas: Mildly atrophic and grossly unremarkable. The pancreatic duct is normal in caliber. Adrenal glands: Unremarkable. Kidneys: The contrast enhanced kidneys are normal in size and without hydronephrosis. The kidneys enhance symmetrically. A 7 mm cyst arises from the lower pole on the left. A 2.9 cm cyst is seen in the upper pole of the right. Abdominal vasculature: The abdominal aorta is normal in course and caliber noting advanced atherosclerotic calcification. Bowel: The small bowel and colon are normal in course and caliber there is moderate to advanced colonic diverticulosis without CT evidence of acute diverticulitis. Mild colonic fecal retention is observed. No bowel obstruction is seen. The appendix is well-visualized and normal. Peritoneum: There is no intraperitoneal free air or abdominal ascites. Lymphadenopathy: None. Pelvic viscera: The bladder is decompressed and grossly unremarkable. The uterus is surgically absent. No adnexal lesion is seen. Skeletal structures: The skeletal structures are osteopenic. Moderate lumbosacral spondylosis is observed. There is a minimal superior endplate compression deformity of L4. No lytic or blastic lesions are seen. Sclerotic change is noted at the pubic symphysis. IMPRESSION: 1. The gallbladder is surgically absent and there is moderate intrahepatic dilatation as well as dilatation of the common bile duct. The appearance is concerning for obstruction and choledocholithiasis is not excluded. MRCP could be considered for further assessment. 2. There is mild inflammatory stranding identified around the common bile duct at the hepatic hilum. Correlate clinically for evidence of infection. 3. Moderate to advanced colonic diverticulosis without CT evidence of acute diverticulitis. PG Care Time/CCT Total # of Minutes Spent Total Time Spent with Patient: Total time spent is greater than 50% in coordination of care (as documented) at patient's floor/unit and/or counseling patient: Coding Level of Care Code 81890 Office/Outpt Visit, Est Diagnoses Choledocholithiasis K80.50 S/P laparoscopic cholecystectomy Z90.49
[2019-12-23 20:53] LABS: Albumin Globulin Ratio 0.8 (0.9-2); Albumin Level 3.2 gm/dl (3.4-5.0); BUN Creatinine Ratio 12.7 (10-20); Bilirubin,Total 6.9 mg/dl (0.2-1); Calcium 8.9 mg/dl (8.5-10.1); Creatinine Clr Calc Pharmacy 86.5 ml/min; Est GFR (African American) 111.3; Est GFR (Non-African American) 96.1; Globulin 3.8 gm/dl (2.5-4.0); Potassium 3.6 mmol/L (3.5-5.1)
[2019-12-24] MEDS: PIPERACILLIN/TAZOBACTAM 3.375 GM in DEXTROSE 5% 100 ML IV SCH ×3 (01:05→18:33)
[2019-12-24] MEDS: SODIUM CHLORIDE 0.9% 1000ML 1,000 ML IV SCH ×4 (04:07→23:51)
[2019-12-24 05:51] LABS: Hematocrit (blood only) 41.2 % (37-47); Hemoglobin 14.8 g/dL (12.0-16.0); Mean Corpuscular Hgb Conc 35.9 g/dL (32-36); Mean Corpuscular Volume 89.2 fL (80-100); Mean Platelet Volume 10.3 fL (7.4-10.4); Platelet Count 236 K/uL (130-400); RDW Coefficient of Variation 12.5 % (11.5-14.5); RDW Standard Deviation 40.4 fL (36.4-46.3); Red Blood Count 4.62 M/uL (4.2-5.4); White Blood Count 12.26 K/uL (4.8-10.8)
[2019-12-24 06:34] LABS: Albumin Globulin Ratio 0.8 (0.9-2); Albumin Level 2.9 gm/dl (3.4-5.0); BUN Creatinine Ratio 15.9 (10-20); Bilirubin,Total 7.3 mg/dl (0.2-1); Calcium 8.5 mg/dl (8.5-10.1); Creatinine Clr Calc Pharmacy 104.2 ml/min; Est GFR (African American) 118.5; Est GFR (Non-African American) 102.2; Globulin 3.5 gm/dl (2.5-4.0); Potassium 3.3 mmol/L (3.5-5.1); Total Protein 6.4 gm/dl (6.4-8.2)
[2019-12-24] MEDS ORDERED: POTASSIUM CHLORIDE 20 MEQ TABCR PO STA (07:46)
--- NOTE | 2019-12-24 08:18 | Electrocardiogram Report ---
Test Reason : Blood Pressure : / mmHG Vent. Rate : 101 BPM Atrial Rate : 101 BPM P-R Int : 152 ms QRS Dur : 086 ms QT Int : 348 ms P-R-T Axes : 031 006 021 degrees QTc Int : 451 ms Sinus tachycardia Poor R wave progression, consider anterior ID vs. lead placement vs. LVH Borderline ECG No previous ECGs available Confirmed by Ángel Ochoa ([id number]) on 12/24/2019 8:17:52 AM Referred By: REFERRED SELF Confirmed By:Ángel Ochoa
[2019-12-24] MEDS: NICOTINE 21 MG/24 HR TDSY TD SCH (09:27)
[2019-12-24] MEDS: MULTIVITAMIN TAB PO SCH (09:30)
[2019-12-24] MEDS: PANTOprazole 40 MG in SYRINGE 0 ML IV SCH ×2 (09:30→22:04)
[2019-12-24] MEDS: AMLODIPINE BESYLATE 5 MG TAB PO SCH (09:31)
[2019-12-24] MEDS: lisinopriL 20 MG TAB PO SCH (09:32)
[2019-12-24] MEDS ORDERED: INDOMETHACIN 50 MG SUPP PR ONE ×2 (10:09→15:27)
--- NOTE | 2019-12-24 10:29 | Gastrointestinal Consultation ---
Date of Consultation December 24, 2019 Assessment & Plan (1) Elevated liver enzymes: (2) Biliary obstruction: (3) RUQ abdominal pain: Pt is a 64 y/o who is s/p cholecystectomy who presented w increased RUQ abd pain radiating to back, jaundice and noted to have elevated LFTs, normal lipase on her labs. CT abd/pelvis showed moderate intrahepatic , CBD dilation at level of pancreas head concerning for obstruction though choledocholithiasis not excluded. There's also inflammatory stranding round CBD at hepatic hilum. Family hx + for pancreatic ca (brother) - Keep NPO - IV antibx coverage for possible cholangitis - IVF hydration - Trend LFTs - Plan for EUS/ERCP eval by Dr. Lizarraga in OR today; Indomethacin 100mg LA ordered for premed to help reduce risk of pancreatitis Supervising Physician Co-Signing Physician Notes I performed a history and physical examination of the patient today, including specifically on physical exam - soft abdomen. I have discussed the patient's management with the advanced practitioner. Please refer to the nurse practitioner's note for the documented findings and plan of care. EUS/ERCP today History of Present Illness Reason for Consultation: Eval for possible ERCP, ? choledocholithiasis Requesting Physician: Dr. Lena Herrera Attending Physician: Dr. Dayanna Lizarraga History of Present Illness Pt is a 64 y/o female who presented w abd pain symptoms and jaundice yesterday. Pt is s/p cholecystectomy. Since surgery she noticed intermittent upper abd pain w diarrhea after ingestion of certain foods such as leach or coffee. However she's noticed increased RUQ abd pain radiating to back in last few weeks. She denies fever, chills, CP, SOB, n/v or bowel habit changes, weight loss. Upon evaluation, noted to have increased WBC, elevated LFTs (Tbili 7, AST 200, ALT 400, AP 100s), normal lipase. CT abd/pelvis w contrast showed moderate intrahepatic dilatation as well as dilatation of the common bile duct. The appearance is concerning for obstruction and choledocholithiasis is not excluded. There is mild inflammatory stranding identified around the common bile duct at the hepatic hilum. Pt is a smoker: 1PPD, denies ETOH abuses. Brother of metastatic pancreatic ca in his 60s Allergies Allergy/AdvReac Type Severity Reaction Status Date / Time No Known Allergies Allergy Verified 12/23/19 14:15 Home Medications Home Medications Medication Instructions Recorded Confirmed Type [id number]-ula-rvrr 18 mg-FA 400 1 tab PO QAM 03/26/19 12/23/19 History mcg-calcium 500 mg-vit K 50 mcg tablet apple cider vinegar 600 mg PO BID 07/07/19 12/23/19 History lisinopril 20 mg tablet 20 mg PO QAM #90 tab 10/02/19 12/23/19 Rx amlodipine 5 mg tablet 5 mg PO QAM #90 tab 10/29/19 12/23/19 Rx Patient History Medical History Cervical cancer diagnosed in --sx Hypertension Right sided abdominal pain Thyroid nodule Surgical History History of section History of conization of cervix History of dilatation and curettage History of root canal procedure History of total hysterectomy with bilateral salpingo-oophorectomy (BSO) History of wisdom tooth extraction S/P fine needle aspiration (02/03/19) R thyroid nodule, benign S/P laparoscopic cholecystectomy (03/04/19) 03/04/19 with marge Barrett lysis of adhesions Family History Mother Coronary heart disease Heart disease Myocardial infarction Cancer Family history of diabetes mellitus Father Coronary heart disease Heart disease Myocardial infarction Family history of diabetes mellitus Brother Cancer Hypertension Stroke Family history of pancreatic cancer Brother Hypertension Brother Coronary heart disease Hypertension Brother Coronary heart disease Myocardial infarction Hypertension Daughter Ovarian cancer Myocardial infarction Breast cancer Family/Other Family hx of colon cancer nephew Other No family history of adverse response to anesthesia Social History Preferred Language: French Communication Ability: Effective Chairman And Ceo Required: No Beliefs That Will Affect Care: None marital status: Current Living Situation: Family current occupational status: retired Other Information That Helps Us Care for You: No Feels Safe at Home: Yes Safety Concerns: Feels Safe At This Time Smoking Status: Current every day smoker Tobacco Type: cigarettes ; Cigarettes Per Day: 20 a day ; Do You Dip or Chew Tobacco: No ; Second Hand Exposure: No ; Tobacco Cessation Education Requested by Patient: No Hx Alcohol Use: Yes Alcohol type: hard liquor Alcohol Intake Frequency: Rarely Hx Substance Use: No Seatbelt Use: always Review of Systems Review of Systems: All systems reviewed & are unremarkable except as noted in HPI & below Physical Exam Constitutional: WD/WN, vitals as above well groomed, cooperative and comfortable Eyes: + scleral abnormality (icterus sclera), PERRL and EOM intact bilaterally ENMT: external ear and nose normal, oropharynx normal Respiratory: normal respiratory effort, lungs clear to auscultation Cardiovascular: RRR, no murmur, no edema Gastrointestinal (Abdomen): normal bowel sounds, soft, nontender, no hepatosplenomegaly Skin: no rashes, warm and dry + jaundice Psychiatric: A+Ox3, euthymic affect Lymphatic: no lymphedema Results & Data ([facility]) Vital Signs (Past 12 Hours) Vital Signs Temp Pulse Resp BP Pulse Ox 12/24/19 07:28 36.9 C 90 18 156/77 H 96 12/24/19 04:00 37.4 C 94 H 16 149/78 H 96 12/24/19 00:36 37.3 C 95 H 18 178/92 H 96 12/23/19 23:24 37.3 C 89 20 167/86 H 98
--- NOTE | 2019-12-24 13:01 | Surgery Progress Note ---
Date of Service December 24, 2019 Assessment & Plan (1) Choledocholithiasis: Patient here with history of cholecystectomy now here with findings concerning for choledocholithiasis WBC 12, pt afebrile LFTs show Tbili: 7.3, AST: 113, ALT:429, AlkP: 184 Plan for GI to perform EUS/ERCP today No further recommendations from surgery. We will follow peripherally, please call with any questions/concerns Supervising Physician Co-Signing Physician Notes Patient seen and examined, agree with above. 64-year-old female status post laparoscopic cholecystectomy last year, now with evidence of possible common bile duct obstruction and cholangitis. GI saw her this morning, scheduled for EUS and ERCP later today. At this point there is no surgical intervention indicated, surgery will follow peripherally, call with questions or concerns Subjective Patient didn't sleep very well, but she is in good spirits this AM and offers no other complaints. Physical Exam Physical Exam: awake/alert Results & Data Vital Signs (Past 12 Hours) Vital Signs Temp Pulse Resp BP Pulse Ox 12/24/19 07:28 36.9 C 90 18 156/77 H 96 12/24/19 04:00 37.4 C 94 H 16 149/78 H 96 PG Care Time/CCT Total # of Minutes Spent Total Time Spent with Patient: Total time spent is greater than 50% in patient placement coordinator rdination of care (as documented) at patient's floor/unit and/or counseling patient: Coding Level of Care Code 67800 Subseq Hosp Care Lvl 1 Diagnoses Choledocholithiasis K80.50
--- NOTE | 2019-12-24 15:01 | History & Physical Bridge Note ---
Date of Service December 24, 2019 History & Physical Bridge Note I have examined the patient, reviewed the History & Physical and in the interval since the performance of the History & Physical I have noted the following changes of clinical significance: no changes noted
--- NOTE | 2019-12-24 15:06 | Anesthesiology Consultation ---
Date of Service December 24, 2019 Covid 19 negative on 12/23/19. Assessment & Plan (1) Encounter for pre-operative examination: Chart Review Chart Review: Acceptable Risk for Surgery (necessary surgery) and Patient NOT seen in Pre Admission Testing Consults Requested none History Surgery Operation Date: 12/24/19 13:25 Proposed Procedures p Endoscopic Retrograde Cholangiopancreatogram - Dayanna Lizarraga MD s Endoscopic Ultrasonography Upper - Dayanna Lizarraga MD Height/Weight Height: 5 ft 2 in Weight: 68 kg Allergies Allergy/AdvReac Type Severity Reaction Status Date / Time No Known Allergies Allergy Verified 12/23/19 14:15 Medications Home Medications Medication Instructions Recorded Confirmed Last Taken vqucavld-uss-ymln 18 mg-FA 400 1 tab PO QAM 03/26/19 12/23/19 07/15/19 09:00 mcg-calcium 500 mg-vit K 50 mcg tablet apple cider vinegar 600 mg PO BID 07/07/19 12/23/19 07/15/19 09:00 lisinopril 20 mg tablet 20 mg PO QAM #90 tab 10/02/19 12/23/19 Unknown amlodipine 5 mg tablet 5 mg PO QAM #90 tab 10/29/19 12/23/19 Unknown Active Medications Generic Name Dose Route Start Last Admin Trade Name Manojq PRN Reason Stop Dose Admin Amlodipine Besylate 5 mg 12/24/19 09:00 12/24/19 09:31 Norvasc PO 01/23/20 08:59 5 mg QAM SARAH Administration Sodium Chloride 1,000 mls @ 125 mls/hr 12/23/19 20:07 12/24/19 14:35 Nss 1000ml IV 01/22/20 20:06 0 mls/hr .Q8H SARAH Infusion Piperacillin Sod/Tazobactam 115 mls @ 28.75 mls/hr 12/24/19 02:00 12/24/19 13 :49 Sod 3.375 gm/ Dextrose IV 01/03/20 01:59 Infused Q8H SARAH Infusion Protocol Pantoprazole Sodium 40 mg/ 10 mls @ 5 mls/min 12/23/19 21:00 12/24/19 09:30 Syringe IV 01/22/20 20:59 5 mls/min BID SARAH Administration Lisinopril 20 mg 12/24/19 09:00 12/24/19 09:32 Zestril PO 01/23/20 08:59 20 mg QAM SARAH Administration Miscellaneous 1 ea 12/24/19 08:59 12/24/19 09:29 Remove Nicoderm Patch N/A 01/23/20 08:58 1 ea [id number] SARAH Administration Multivitamins 1 tab 12/24/19 09:00 12/24/19 09:30 Multivitamin Tab PO 01/23/20 08:59 1 tab QAM SARAH Administration Nicotine 21 mg 12/23/19 20:07 12/24/19 09:27 Nicoderm Cq TD 01/22/20 20:06 21 mg QAM SARAH Administration NPO Date Last Intake of Fluids: 12/24/19 Time Last Intake of Fluids: 00:00 Date Last Intake of Solids: 12/21/19 Past Medical History Medical History Cervical cancer diagnosed in --sx Hypertension Right sided abdominal pain Thyroid nodule Past Family History Family History Mother Coronary heart disease Heart disease Myocardial infarction Cancer Family history of diabetes mellitus Father Coronary heart disease Heart disease Myocardial infarction Family history of diabetes mellitus Brother Cancer Hypertension Stroke Family history of pancreatic cancer Brother Hypertension Brother Coronary heart disease Hypertension Brother Coronary heart disease Myocardial infarction Hypertension Daughter Ovarian cancer Myocardial infarction Breast cancer Family/Other Family hx of colon cancer nephew Other No family history of adverse response to anesthesia Past Surgical History Surgical History History of section History of conization of cervix History of dilatation and curettage History of root canal procedure History of total hysterectomy with bilateral salpingo-oophorectomy (BSO) History of wisdom tooth extraction S/P fine needle aspiration (02/03/19) R thyroid nodule, benign S/P laparoscopic cholecystectomy (03/04/19) 03/04/19 with marge Barrett lysis of adhesions Social History Smoking Status: Current every day smoker tobacco type: cigarettes Smoking cigarettes per day: 20 a day Do You Dip or Chew Tobacco: No Hx Alcohol Use: Yes Alcohol type: hard liquor alcohol intake frequency: holidays/special occasions only Hx Substance Use: No substance use type: does not use Physical Exam Vital Signs Last Vital Signs Temp 36.9 C 12/24/19 07:28 Pulse 90 12/24/19 07:28 Resp 18 12/24/19 07:28 BP 156/77 H 12/24/19 07:28 Pulse Ox 96 12/24/19 07:28 Testing Laboratory Results 12/24/19 05:22 12/24/19 05:22 Electrocardiogram Date: 12/23/19 Findings: + poor R wave progression and + ST @ (101) Chest X-Ray Date: 12/23/19 Findings: + NAD
[2019-12-24] MEDS ORDERED: fentaNYL citrate 100 MCG/2 ML VIAL ONE ×2 (15:19→15:56)
[2019-12-24] MEDS ORDERED: SUCCINYLCHOLINE CHLORIDE 20 MG/ML 10 ML VIAL IV ONE (15:23)
[2019-12-24] MEDS ORDERED: PROPOFOL IV EMULSION 10 MG/ML 20 ML VIAL IV ONE (15:23)
[2019-12-24] MEDS ORDERED: ePHEDrine sulfate 50 MG/ML AMP IV PRN (15:47)
[2019-12-24] MEDS ORDERED: ONDANSETRON INJ 2 MG/ML 2 ML VIAL IV PRN (15:47)
[2019-12-24] MEDS ORDERED: LABETALOL HCL IV 5 MG/ML 20ML IV PRN (15:47)
[2019-12-24] MEDS ORDERED: fentaNYL citrate 100 MCG/2 ML VIAL IV PRN (15:47)
[2019-12-24] MEDS ORDERED: ATROPINE SULFATE 0.1 MG/ML 10ML SYR IV PRN (15:47)
[2019-12-24] MEDS ORDERED: PHENYLEPHRINE 100MCG/ML 5ML SYR IV PRN (15:47)
[2019-12-24] MEDS ORDERED: LIDOCAINE HCL 2% 2 ML VIAL/AMP(20MG/ML) INFIL ONE (15:57)
[2019-12-24] MEDS ORDERED: ONDANSETRON INJ 2 MG/ML 2 ML VIAL ONE (15:57)
--- NOTE | 2019-12-24 16:38 | Operative Report ---
Post Operative Report Pre & Post Diagnosis Operation Date: 12/24/19 13:25 Pre-Op Diagnosis: CHOLANGITIS Post-Op Diagnosis: CHOLANGITIS I identified the patient and participated in the time-out.: Yes Procedure Operation Date: 12/24/19 13:25 Actual Procedures p Upper Gastrointestinal Endoscopy, Endoscopic Retrograde Cholangiopancreatogram(Not Applicable) - Dayanna Lizarraga MD s Endoscopic Ultrasonography Upper(Not Applicable) - Dayanna Lizarraga MD Surgeon Dayanna Lizarraga MD Massage Therapist None Estimated Blood Loss 0 Findings See Below (CBD stones removed, cholangitis noted, stents placed) Specimens None Description of Procedure ERCP I attest to the content of the Intraoperative Record and any orders documented therein. Any exceptions are noted below.
--- NOTE | 2019-12-24 16:57 | Fluoroscopy Report ---
[place] ERCP biliary ductal CLINICAL HISTORY: EXPLORE DUCTS COMPARISON STUDY: CT of the abdomen and pelvis December 23, 2019. FLUOROSCOPY TIME: 40 seconds. FLUOROSCOPIC IMAGES: 16 FINDINGS: Fluoroscopy was provided during ERCP. Common bile duct was cannulated. Filling defects with in the common bile duct suggest calculi. Balloon sweep through the common bile duct was performed. 2 stents within the common bile duct replaced. IMPRESSION: Fluoroscopy provided during ERCP with placement of biliary stents. ACT 112: Negative or not required by law. Electronically signed by: Arjun Gurrola M.D. 12/24/2019 4:56 PM
--- NOTE | 2019-12-24 16:58 | GI REPORT ---
Patient Name: Jax Carmona Procedure Date: 12/24/2019 3:33 PM Date of : 1955 Admit Type: Inpatient Age: 64 Gender: Female Attending MD: Dayanna Lizarraga MD Procedure: Upper GI endoscopy Providers: Dayanna Lizarraga MD Referring MD: Lena Herrera Indications: Epigastric abdominal pain Medicines: General Anesthesia Complications: No immediate complications. Estimated Blood Loss: Estimated blood loss: none. Procedure: Pre-Anesthesia Assessment: - Prior to the procedure, a History and Physical was performed, and patient medications, allergies and sensitivities were reviewed. The patient's tolerance of previous anesthesia was reviewed. - The risks and benefits of the procedure and the sedation options and risks were discussed with the patient. All questions were answered and informed consent was obtained. - Patient identification and proposed procedure were verified prior to the procedure by the physician and the nurse. The procedure was verified in the procedure room. - Pre-procedure physical examination revealed no contraindications to sedation. After obtaining informed consent, the endoscope was passed under direct vision. Throughout the procedure, the patient's blood pressure, pulse, and oxygen saturations were monitored continuously. The Endoscope was introduced through the mouth, and advanced to the second part of duodenum. The upper GI endoscopy was accomplished without difficulty. The patient tolerated the procedure well. Findings: The examined esophagus was normal. The entire examined stomach was normal. The duodenal bulb and second portion of the duodenum were normal. Impression: - Normal esophagus. - Normal stomach. - Normal duodenal bulb and second portion of the duodenum. Recommendation: - Perform an upper endoscopic ultrasound (UEUS) today. Dayanna Lizarraga MD 12/24/2019 4:58:02 PM This report has been signed electronically. Note Initiated On: 12/24/2019 3:33 PM Number of Addenda: 0 I attest to the content of the Intraoperative Record and orders documented therein, exceptions below {[id number]}
--- NOTE | 2019-12-24 17:07 | Hospitalist Progress Note ---
Date of Service December 24, 2019 Assessment & Plan (1) RUQ abdominal pain: 64-year-old female who states that last year in the fall, she had her gallbladder removed. 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 - on admission AST 262, ALT 607, Alk phos 192 - this AM AST 112, ALT 429, Alk phos 184 - T bili on admission 6.2, this AM 7.3 - GI consulted: ERCP today with stenting of common bile duct, trend LFTs - EGD demonstrated normal stomach mucosa, duodenum and duodenal bulb - Hepatic function panel in AM - CBC in AM - continue prophylactic Zosyn at this time - blood cultures x2 pending HTN: - continue home amlodipine, and Lisinopril Diet: NPO DVT ppx: deferred at this time Code: Full code Admission and Anticipated Discharge Date Admission Date: December 23, 2019 Supervising Physician Co-Signing Physician Notes Resident Physician Supervision Note: I independently interviewed and examined the patient and verified the newman history and physical, reviewed labs and image studies, discussed the case with the resident Dr. Avery and agree with the findings and care plan. Subjective Continues to have mild abdominal ache with some ache still present in her upper back that has been unchanged since admission. Review of Systems Review of Systems: All systems reviewed & are unremarkable except as noted in Subjective Physical Exam Constitutional: WD/WN, vitals as above Eyes: PERRL, conjunctivae normal, anicteric sclerae Respiratory: normal respiratory effort, lungs clear to auscultation Cardiovascular: Rate/Rhythm: regular rate and regular rhythm Heart Sounds: no gallop, no murmur and no cardiac rub Vessels: no JVD Extremities: no edema Gastrointestinal (Abdomen): Inspection/Auscultation: abdomen normal to inspect ion and normal bowel sounds; abdomen not distended Percussion/Palpation: + abdomen tender (RUQ) and abdomen soft; no guarding Skin: no rashes, warm and dry Psychiatric: A+Ox3, euthymic affect Results & Data Results & Data ([facility]) Vital Signs (Past 12 Hours) Vital Signs Temp Pulse Pulse Resp BP Pulse Ox 12/24/19 16:55 100 H 18 119/74 100 12/24/19 16:48 36.9 C 110 H 20 111/56 L 100 12/24/19 15:08 37.8 C H 98 H 20 162/88 H 98 12/24/19 07:28 36.9 C 90 18 156/77 H 96 Laboratory Results 12/24/19 12/24/19 12/23/19 Range/Units 05:22 05:22 22:00 WBC 12.26 H (4.8-10.8) K/uL RBC 4.62 (4.2-5.4) M/uL Hgb 14.8 (12.0-16.0) g/dL Hct 41.2 (37-47) % MCV 89.2 (80-100) fL MCH 32.0 (25-34) pg MCHC 35.9 (32-36) g/dL RDW Std Deviation 40.4 (36.4-46.3) fL RDW Coeff of Aleja 12.5 (11.5-14.5) % Plt Count 236 (130-400) K/uL MPV 10.3 (7.4-10.4) fL Sodium 138 (136-145) mmol/L Potassium 3.3 L (3.5-5.1) mmol/L Chloride 112 H (98-107) mmol/L Carbon Dioxide 22 (21-32) mmol/L Anion Gap 4.0 (3-11) BUN 8 (7-18) mg/dl Creatinine 0.48 L (0.6-1.2) mg/dl Est Cr Clr Drug Dosing 104.2 ml/min Est GFR ( Amer) 118.5 Est GFR (Non-Af Amer) 102.2 BUN/Creatinine Ratio 15.9 (10-20) Glucose 132 H (70-99) mg/dl Lactate (0.4-2.0) mmol/L Calcium 8.5 (8.5-10.1) mg/dl Magnesium (1.8-2.4) mg/dl Total Bilirubin 7.3 H (0.2-1) mg/dl AST 113 H (15-37) U/L ALT 429 H (12-78) U/L Alkaline Phosphatase 184 H (45-117) U/L Ammonia (11-32) umol/L Troponin I (0-0.045) ng/ml Total Protein 6.4 (6.4-8.2) gm/dl Albumin 2.9 L (3.4-5.0) gm/dl Globulin 3.5 (2.5-4.0) gm/dl Albumin/Globulin Ratio 0.8 L (0.9-2) Lipase (73-393) U/L Specimen Hemolysis COVID-19 PCR NEGATIVE (Negative) 12/23/19 12/23/19 12/23/19 Range/Units 20:19 17:30 17:30 WBC (4.8-10.8) K/uL RBC (4.2-5.4) M/uL Hgb (12.0-16.0) g/dL Hct (37-47) % MCV (80-100) fL MCH (25-34) pg MCHC (32-36) g/dL RDW Std Deviation (36.4-46.3) fL RDW Coeff of Aleja (11.5-14.5) % Plt Count (130-400) K/uL MPV (7.4-10.4) fL Sodium 138 (136-145) mmol/L Potassium 3.6 (3.5-5.1) mmol/L Chloride 108 H (98-107) mmol/L Carbon Dioxide 22 (21-32) mmol/L Anion Gap 7.0 (3-11) BUN 7 (7-18) mg/dl Creatinine 0.58 L (0.6-1.2) mg/dl Est Cr Clr Drug Dosing 86.5 ml/min Est GFR ( Amer) 111.3 Est GFR (Non-Af Amer) 96.1 BUN/Creatinine Ratio 12.7 (10-20) Glucose 149 H (70-99) mg/dl Lactate 1.2 (0.4-2.0) mmol/L Calcium 8.9 (8.5-10.1) mg/dl Magnesium (1.8-2.4) mg/dl Total Bilirubin 6.9 H (0.2-1) mg/dl AST 205 H (15-37) U/L ALT 571 H (12-78) U/L Alkaline Phosphatase 201 H (45-117) U/L Ammonia < 10.0 L (11-32) umol/L Troponin I (0-0.045) ng/ml Total Protein 7.0 (6.4-8.2) gm/dl Albumin 3.2 L (3.4-5.0) gm/dl Globulin 3.8 (2.5-4.0) gm/dl Albumin/Globulin Ratio 0.8 L (0.9-2) Lipase (73-393) U/L Specimen Hemolysis COVID-19 PCR (Negative) 12/23/19 Range/Units 17:30 WBC (4.8-10.8) K/uL RBC (4.2-5.4) M/uL Hgb (12.0-16.0) g/dL Hct (37-47) % MCV (80-100) fL MCH (25-34) pg MCHC (32-36) g/dL RDW Std Deviation (36.4-46.3) fL RDW Coeff of Aleja (11.5-14.5) % Plt Count (130-400) K/uL MPV (7.4-10.4) fL Sodium (136-145) mmol/L Potassium (3.5-5.1) mmol/L Chloride (98-107) mmol/L Carbon Dioxide (21-32) mmol/L Anion Gap (3-11) BUN (7-18) mg/dl Creatinine (0.6-1.2) mg/dl Est Cr Clr Drug Dosing ml/min Est GFR ( Amer) Est GFR (Non-Af Amer) BUN/Creatinine Ratio (10-20) Glucose (70-99) mg/dl Lactate (0.4-2.0) mmol/L Calcium (8.5-10.1) mg/dl Magnesium 1.9 (1.8-2.4) mg/dl Total Bilirubin (0.2-1) mg/dl AST (15-37) U/L ALT (12-78) U/L Alkaline Phosphatase (45-117) U/L Ammonia (11-32) umol/L Troponin I < 0.015 (0-0.045) ng/ml Total Protein (6.4-8.2) gm/dl Albumin (3.4-5.0) gm/dl Globulin (2.5-4.0) gm/dl Albumin/Globulin Ratio (0.9-2) Lipase 107 (73-393) U/L Specimen Hemolysis COVID-19 PCR (Negative) Medications Administered Current Inpatient Medications Amlodipine Besylate (Norvasc) 5 mg PO QAM SARAH Stop: 01/23/20 08:59 Last Admin: 12/24/19 09:31 Dose: 5 mg Documented by: Atropine Sulfate (Atropine Sulfate) 0.5 mg IV Q1M PRN PRN Reason: PACU Use-HR<40 &/or Bradycardi Stop: 12/24/19 23:48 Ephedrine Sulfate (Ephedrine Sulfate) 5 mg IV Q5M PRN PRN Reason: PACU Use Only-SBP<90 mmHg Stop: 12/24/19 23:48 Fentanyl Citrate (Fentanyl Citrate) 25 mcg IV Q5M PRN PRN Reason: PACU Use Only-Pain Stop: 12/24/19 23:48 Promethazine HCl 12.5 mg/ (Sodium Chloride) 50.5 mls @ 202 mls/hr IV Q6H PRN PRN Reason: Nausea And Vomiting Stop: 01/22/20 20:06 Sodium Chloride (Nss 1000ml) 1,000 mls @ 125 mls/hr IV .Q8H [facility] Stop: 01/22/20 20:06 Last Infusion: 12/24/19 14:35 Dose: 0 mls/hr Documented by: Piperacillin Sod/Tazobactam (Sod 3.375 gm/ Dextrose) 115 mls @ 28.75 mls/hr IV Q8H [facility]; Protocol Stop: 01/03/20 01:59 Last Infusion: 12/24/19 13:49 Dose: Infused Documented by: Pantoprazole Sodium 40 mg/ (Syringe) 10 mls @ 5 mls/min IV BID [facility] Stop: 01/22/20 20:59 Last Admin: 12/24/19 09:30 Dose: 5 mls/min Documented by: Labetalol HCl (Normodyne) 5 mg IV Q5M PRN PRN Reason: PACU Use-SBP>160 or DBP>100 Stop: 12/24/19 23:48 [facility]op[facility]est[facility]) [facility] [place]: 01/23/20 08:59 Last Admin: 12/24/19 09:32 Dose: 20 mg Documented by: Miscellaneous (Remove Nicoderm Patch) 1 ea N/A DAILY@0859 [facility] Stop: 01/23/20 08:58 Last Admin: 12/24/19 09:29 Dose: 1 ea Documented by: Miscellaneous Information (Consult) 1 ea N/A UD PRN PRN Reason: Consult Stop: 01/22/20 20:06 Morphine Sulfate (Morphine Sulfate) 2 mg IV Q4 PRN PRN Reason: Pain Stop: 01/06/20 20:06 Morphine Sulfate (Morphine Sulfate) 4 mg IV Q4 PRN PRN Reason: Pain Stop: 01/06/20 20:06 Multivitamins (Multivitamin Tab) 1 tab PO QAM [facility] Stop: 01/23/20 08:59 Last Admin: 12/24/19 09:30 Dose: 1 tab Documented by: Nicotine (Nicoderm Cq) 21 mg TD QAM SARAH Stop: 01/22/20 20:06 Last Admin: 12/24/19 09:27 Dose: 21 mg Documented by: Ondansetron HCl (Zofran) 4 mg IV Q6H PRN PRN Reason: Nausea Stop: 01/22/20 20:06 Ondansetron HCl (Zofran) 4 mg IV ONCE PRN PRN Reason: PACU Use Only-Nausea/Vomiting Stop: 12/24/19 23:48 Phenylephrine HCl (Ash-Synephrine 500mcg/5ml) 100 mcg IV Q5M PRN PRN Reason: PACU Use Only-SBP<90 or HR>70 Stop: 12/24/19 23:48 Resident Activity Tracking Resident Involvement: Resident Care Provided Care Provided: Adult Hospital Medicine
[2019-12-24] MEDS ORDERED: METOPROLOL TARTRATE 1 MG/ML VIAL IV ONE (17:15)
[2019-12-24] MEDS ORDERED: METOPROLOL TARTRATE 1 MG/ML VIAL IV STA (17:16)
--- NOTE | 2019-12-24 17:35 | Anesthesiology Progress Note ---
Date of Service December 24, 2019 Anesthesia Post Procedure Vital Signs Vital Signs: Temp Pulse Pulse Pulse Resp BP BP 12/24/19 17:25 37.0 C 85 17 140/72 12/24/19 17:18 101 H 134/75 12/24/19 17:15 101 H 16 134/75 12/24/19 17:05 97 H 16 133/77 12/24/19 16:55 100 H 18 119/74 12/24/19 16:48 36.9 C 110 H 20 111/56 L 12/24/19 15:08 37.8 C H 98 H 20 162/88 H 12/24/19 07:28 36.9 C 90 18 156/77 H 12/24/19 04:00 37.4 C 94 H 16 149/78 H 12/24/19 00:36 37.3 C 95 H 18 178/92 H 12/23/19 23:24 37.3 C 89 20 167/86 H 12/23/19 20:08 36.9 C 102 H 18 153/92 H 12/23/19 19:29 98 H 18 136/88 12/23/19 18:31 114 H 22 12/23/19 18:30 104 H 24 165/97 H 12/23/19 18:01 103 H 19 12/23/19 18:00 99 H 17 156/67 H 12/23/19 17:50 113 H 17 Pulse Ox 12/24/19 17:25 96 12/24/19 17:18 12/24/19 17:15 96 12/24/19 17:05 97 12/24/19 16:55 100 12/24/19 16:48 100 12/24/19 15:08 98 12/24/19 07:28 96 12/24/19 04:00 96 12/24/19 00:36 96 12/23/19 23:24 98 12/23/19 20:08 97 12/23/19 19:29 97 12/23/19 18:31 98 12/23/19 18:30 99 12/23/19 18:01 98 12/23/19 18:00 12/23/19 17:50 Pain Intensity Back: Pain Intensity: 3 Transfer of Care Handoff Completed per policy Notes Mental Status: alert / awake / arousable and participated in evaluation Patient Amnestic to Procedure: Yes Nausea / Vomiting: adequately controlled Pain: adequately controlled Airway Patency, RR, SpO2: stable & adequate BP & HR: stable & adequate Hydration State: stable & adequate Anesthetic Complications: no major complications apparent and Pt Satisfied with anesthetic care
--- NOTE | 2019-12-24 18:04 | GI REPORT ---
Patient Name: Jax Carmona Procedure Date: 12/24/2019 3:34 PM Date of : 1955 Admit Type: Inpatient Age: 64 Gender: Female Attending MD: Dayanna Lizarraga MD Procedure: Upper EUS Providers: Dayanna Lizarraga MD Referring MD: Lena Herrera Indications: Common bile duct dilation (acquired) seen on CT scan, Elevated liver enzymes, Suspected choledocholithiasis Medicines: General Anesthesia Complications: No immediate complications. Estimated Blood Loss: Estimated blood loss: none. Procedure: Pre-Anesthesia Assessment: - Prior to the procedure, a History and Physical was performed, and patient medications, allergies and sensitivities were reviewed. The patient's tolerance of previous anesthesia was reviewed. - The risks and benefits of the procedure and the sedation options and risks were discussed with the patient. All questions were answered and informed consent was obtained. - Patient identification and proposed procedure were verified prior to the procedure by the physician and the nurse. The procedure was verified in the procedure room. - Pre-procedure physical examination revealed no contraindications to sedation. After obtaining informed consent, the endoscope was passed under direct vision. Throughout the procedure, the patient's blood pressure, pulse, and oxygen saturations were monitored continuously. The Endosonoscope was introduced through the mouth, and advanced to the second part of duodenum. The upper EUS was accomplished without difficulty. The patient tolerated the procedure well. Findings: ENDOSONOGRAPHIC FINDING: : There was no sign of significant endosonographic abnormality in the ampulla. No masses were identified. There was dilation in the common bile duct which measured up to 14 mm. Mild wall thickening suggestive of cholangitis. Multiple stones were visualized endosonographically in the common bile duct. The stones measured up to 12 mm in greatest dimension. They were hyperechoic and characterized by shadowing. Evidence of a previous cholecystectomy was identified endosonographically. There was no sign of significant endosonographic abnormality in the entire pancreas. The pancreatic duct measured up to 2 mm in diameter. There was no sign of significant endosonographic abnormality in the visualized portion of the liver. A few enlarged lymph nodes were visualized in the yusuf hepatis region. The largest measured 10 mm in maximal cross-sectional diameter. The nodes were triangular, hypoechoic and had well defined margins. Likely reactive from underlying cholangitis. There was no sign of significant endosonographic abnormality in the visualized portion of the left adrenal gland. There was no sign of significant endosonographic abnormality involving the celiac trunk. Impression: - There was no sign of significant pathology in the ampulla. - There was dilation in the common bile duct which measured up to 14 mm with mild wall thickening and multiple stones were visualized endosonographically in the common bile duct. - Evidence of a cholecystectomy. - There was no sign of significant pathology in the entire pancreas. - There was no evidence of significant pathology in the visualized portion of the liver. - A few enlarged lymph nodes were visualized in the yusuf hepatis region likely reactive from underlying cholangitis. - Endosonographic images of the left adrenal gland were unremarkable. - The celiac trunk was endosonographically normal. - No specimens collected. Recommendation: - Perform an ERCP today. Dayanna Lizarraga MD 12/24/2019 6:03:33 PM This report has been signed electronically. Note Initiated On: 12/24/2019 3:34 PM Number of Addenda: 0 I attest to the content of the Intraoperative Record and orders documented therein, exceptions below {[id number]}
--- NOTE | 2019-12-24 18:10 | GI REPORT ---
Patient Name: Jax Carmona Procedure Date: 12/24/2019 3:36 PM Date of : 1955 Admit Type: Inpatient Age: 64 Gender: Female Attending MD: Dayanna Lizarraga MD Procedure: ERCP Providers: Dayanna Lizarraga MD Referring MD: Lena Herrera Indications: Biliary dilation on Computed Tomogram Scan, Abnormal endoscopic ultrasound of the biliary system, For therapy of bile duct stone(s), Suspected ascending cholangitis Medicines: General Anesthesia Complications: No immediate complications. Estimated Blood Loss: Estimated blood loss: none. Procedure: Pre-Anesthesia Assessment: - Prior to the procedure, a History and Physical was performed, and patient medications, allergies and sensitivities were reviewed. The patient's tolerance of previous anesthesia was reviewed. - The risks and benefits of the procedure and the sedation options and risks were discussed with the patient. All questions were answered and informed consent was obtained. - Patient identification and proposed procedure were verified prior to the procedure by the physician and the nurse. The procedure was verified in the procedure room. - Pre-procedure physical examination revealed no contraindications to sedation. After obtaining informed consent, the scope was passed under direct vision. Throughout the procedure, the patient's blood pressure, pulse, and oxygen saturations were monitored continuously. The Scope was introduced through the mouth, and advanced to the duodenum and used to inject contrast into the bile duct. The ERCP was accomplished without difficulty. The patient tolerated the procedure well. Findings: A clay transporter film of the abdomen was obtained. Surgical clips, consistent with a previous cholecystectomy, were seen in the area of the right upper quadrant of the abdomen. The esophagus was successfully intubated under direct vision. The scope was advanced to a normal major papilla in the descending duodenum without detailed examination of the pharynx, larynx and associated structures, and upper GI tract. The upper GI tract was grossly normal. Pus was emerging from the major papilla. A 0.035 inch straight standard wire was passed into the biliary tree from the first attempt. The Fusion OMNI sphincterotome was passed over the guidewire and the bile duct was then deeply cannulated. Contrast was injected. I personally interpreted the bile duct images. Ductal flow of contrast was adequate. Image quality was adequate. Contrast extended to the main bile duct. The main bile duct was dilated. The largest diameter was 14 mm. The lower third of the main bile duct contained multiple stones. Biliary sphincterotomy was made with a monofilament traction (standard) sphincterotome using ERBE electrocautery. There was no post-sphincterotomy bleeding. Bile duct orifice was successfully dilated with a 9 mm balloon dilator. The biliary tree was swept with a 15 mm balloon starting at the bifurcation. Many stones were removed. No stones remained. Pus was swept from the duct. One 10 Fr by 7 cm plastic biliary stent with a single external flap and a single internal flap was placed into the common bile duct. Bile flowed through the stent. The stent was in good position. One 7 Fr by 4 cm plastic biliary stent with a single external pigtail and a single internal pigtail was placed into the common bile duct. Bile flowed through the stent. The stent was in good position. Indomethacin 100 mg was given via suppository to decrease the risk of post-ERCP pancreatitis (PEP). PD was not cannulated. Impression: - Pus was seen in the major papilla consistent with acute cholangitis. - Choledocholithiasis was found. Complete removal was accomplished by biliary sphincterotomy, balloon sphincteroplasty and balloon extraction. - Two plastic biliary stents were placed into the common bile duct. Recommendation: - Return patient to hospital [facility] for ongoing care. - Avoid aspirin and nonsteroidal anti-inflammatory medicines for 5 days. - Repeat ERCP in 4 weeks to remove stent. - Complete a 7 days course of PO ABx upon discharge. Dayanna Lizarraga MD 12/24/2019 6:10:03 PM This report has been signed electronically. Note Initiated On: 12/24/2019 3:36 PM Number of Addenda: 0 I attest to the content of the Intraoperative Record and orders documented therein, exceptions below {[id number]}
[2019-12-25] MEDS: PIPERACILLIN/TAZOBACTAM 3.375 GM in DEXTROSE 5% 100 ML IV SCH ×2 (02:46→11:12)
[2019-12-25] MEDS: SODIUM CHLORIDE 0.9% 1000ML 1,000 ML IV SCH ×2 (07:39→17:16)
[2019-12-25] MEDS: PANTOprazole 40 MG in SYRINGE 0 ML IV SCH (07:40)
[2019-12-25] MEDS: NICOTINE 21 MG/24 HR TDSY TD SCH (07:41)
[2019-12-25] MEDS: AMLODIPINE BESYLATE 5 MG TAB PO SCH (07:42)
[2019-12-25] MEDS: MULTIVITAMIN TAB PO SCH (07:43)
[2019-12-25] MEDS: lisinopriL 20 MG TAB PO SCH (07:43)
[2019-12-25 07:59] LABS: Hematocrit (blood only) 36.4 % (37-47); Hemoglobin 12.8 g/dL (12.0-16.0); Mean Corpuscular Hemoglobin 31.8 pg (25-34); Mean Corpuscular Hgb Conc 35.2 g/dL (32-36); Mean Corpuscular Volume 90.5 fL (80-100); Mean Platelet Volume 10.1 fL (7.4-10.4); Platelet Count 209 K/uL (130-400); RDW Coefficient of Variation 12.4 % (11.5-14.5); RDW Standard Deviation 41.5 fL (36.4-46.3); Red Blood Count 4.02 M/uL (4.2-5.4); White Blood Count 9.73 K/uL (4.8-10.8)
[2019-12-25 08:34] LABS: Albumin Globulin Ratio 0.7 (0.9-2); Albumin Level 2.3 gm/dl (3.4-5.0); BUN Creatinine Ratio 16.1 (10-20); Calcium 8.6 mg/dl (8.5-10.1); Creatinine Clr Calc Pharmacy 92.6 ml/min; Est GFR (Non-African American) 98.3; Globulin 3.3 gm/dl (2.5-4.0); Potassium 3.7 mmol/L (3.5-5.1); Total Protein 5.6 gm/dl (6.4-8.2)
--- NOTE | 2019-12-25 15:13 | Discharge Summary ---
Date of Service December 25, 2019 Admission HPI Per Admitting Provider 64-year-old female who states that last year in the fall, she had her gallbladder removed. Since that timeframe, she has had bouts intermittently of epigastric pain and nausea. She states that yesterday, she developed the pain in the morning after drinking some coffee. The pain was severe at a 10/10, the pain was crampy, sharp. The pain went to her shoulder blades. She was nauseated but did not vomit. The pain lasted all day. This morning, she woke up with some mild right upper quadrant pain and she still has some mild pain in the back. The severe pain that was gone. She saw her doctors office and a CT of the abdomen pelvis was done. The CT shows the possibility of acute cholecystitis with a common bile duct obstruction. She was sent to the ED. There has been no shortness of breath, no increased cough. She was told by her doctors office today that she may have had a low-grade fever at their visit. She herself had not noticed fever at home. No sweats. No diarrhea. No urinary complaints. The patient has not noticed any yellowness to her skin. She does admit that her gallbladder surgery was somewhat complicated and that her gallbladder disintegrated during the surgery. Admission Exam Per Admitting Provider The patient appeared well nourished and normally developed. Vital signs as documented. Head exam is normocephalic atraumatic no scleral icterus Neck is without JVD, thyromegaly, or carotid bruits. Lungs are clear to auscultation, no focal loss of breath sounds Cardiac exam, Rhythm is regular.. No murmurs, rubs or gallops. Abdominal exam reveals normal bowel sounds, soft non tender, no masses Extremities are nonedematous and both pedal pulses are normal. Neurologic exam is alert and oriented, no focal loss of strength or sensation Skin is without bruises or rashes Psychologically is without concerns for anxiety or depression Principal Diagnosis Bile duct obstruction Elevated liver enzymes cholangitis Biliary stones Jaundice HTN Discharge Exam Constitutional well developed and well nourished; no acute distress Eyes PERRL, conjunctivae normal, anicteric sclerae ENMT external ear and nose normal, oropharynx normal Neck normal visual inspection and trachea midline Respiratory normal respiratory effort, lungs clear to auscultation Cardiovascular RRR, no murmur, no edema Gastrointestinal (Abdomen) - soft, slightly tender to palpation in the RUQ improved - no guarding Skin no rashes, warm and dry Neurologic Speech / Cognition: normal speech Psychiatric A+Ox3, euthymic affect Discharge Data Allergies Allergy/AdvReac Type Severity Reaction Status Date / Time No Known Allergies Allergy Verified 12/23/19 14:15 Consultations 12/24/19 10:00 Consult Gastroenterology Routine Procedures Performed Operation Date: 12/24/19 13:25 Actual Procedures p Endoscopic Retrograde Cholangiopancreatogram, sphinterotomy, biliary dilation, stone extraction, biliary stents placement x2(Not Applicable) - Dayanna Lizarraga MD s Endoscopic Ultrasonography Upper(Not Applicable) - Dayanna Lizarraga MD s Upper Gastrointestinal Endoscopy(Not Applicable) - Dayanna Lizarraga MD Ordered Studies 12/24/19 13:00 FL ERCP biliary ductal Routine 12/24/19 13:33 US upper EUS PACS images Routine Hospital Course (1) RUQ abdominal pain: 64-year-old female who states that last year in the fall, she had her gallbladder removed, presented with RUQ found to have billiary stones now s/p ERCP. SIRS due to cholangitis Cholangitis w/ obstructing biliary stones: - patient has history of cholecystectomy - on admission AST 262, ALT 607, Alk phos 192 - this AM AST 51, ALT 243, Alk phos 163 - T bili on admission 6.2, this AM 6 - EGD demonstrated normal stomach mucosa, duodenum and duodenal bulb - GI consulted: ERCP today with stenting of common bile duct, multiple stones removed, sphincterotomy performed, LFT's improved - sent home with 5 days of Cipro an dFlagyl - blood cultures x2 negative to date - tolerating regular diet HTN: - continue home amlodipine, and Lisinopril Total Time Total Time Spent Total Time Spent (In Minutes): see attendings attestation Discharge Plan Discharge Items Patient Disposition: Home - Self-Care Reason For Visit: CHOLANGITIS Discharge Diagnosis: bile duct stones s/p ERCP Condition on Discharge: Good Activity: Resume your previous activity Non-emergency contact: Primary Care Provider Call non-emergency contact if: your temperature is above 101 Follow-up/Referrals: Jessi Palencia DO [Primary Care Provider] - Diet: Regular Addtl Attending Provider Instructions: Abdominal Pain: You had come to the hospital to evaluate your abdominal pain. You were found to have elevated labs concerning for obstruction/blockage of your biliary system. You had a ERCP procedure done where they removed stones and stented you bile duct. You had improvement in your symptoms and we noted that your labs were improved. We had you on antibiotics during your hospitalization, and you will go home on two new oral antibiotics that you will take for 5 days after leaving the hospital. Medications: - take Ciprofloxacin 500 mg every 12 hours for 5 days total - take Metronidazole (Flagyl) 500 mg every 8 hours for 5 days total Return precautions: If you develop a fever or worsening abdominal pain then we will want you to call or come in to get further evaluation. Follow up: It will be important for you to follow up with your primary care doctor within 7 days of leaving the hospital. Call to make an appointment as soon as you leave the hospital. Pending Studies at Discharge: Yes Studies:: blood cultures - no growth at 24 hours Stand-Alone Forms: My [facility], Opioid Pain Management, Smoking Cessation Medications and DC Order Prescriptions: New ciprofloxacin HCl [Cipro] 500 mg tablet 500 mg PO Q12H 5 Days Qty: 10 RF: 0 metronidazole [Flagyl] 500 mg tablet 500 mg PO Q8H 5 Days Qty: 15 RF: 0 Continued lisinopril 20 mg tablet 20 mg PO QAM Qty: 90 RF: 1 amlodipine 5 mg tablet 5 mg PO QAM Qty: 90 RF: 1 apple cider vinegar 600 mg capsule 600 mg PO BID RF: 0 Women's Multivitamin 18 mg-400 mcg- 500 mg-50 mcg tablet 1 tab PO QAM RF: 0 Discharge Orders: Discharge Order (Routine); Ordered 12/25/19 Ordered By: Jarad Alcaraz/Other Patient Handouts: ERCP Endoscopic Retrograde Cholangiopancreatography Admission Data Admit Date/Time: 12/23/19 18:24 Attending Provider: Lena Herrera Admit Provider: Angel Sim Primary Care Provider: Jessi Palencia Other Providers: Angel Sim ; William Mclaughlin Other Interventions: Discharge Summary Assessment (RN) Last Done: 12/25/19 16:29 DC Date/Time DO NOT enter until pt leaves facility: 12/25/19 17:32 Supervising Physician Co-Signing Physician Notes Resident Physician Supervision Note: I independently interviewed and examined the patient and verified the newman history and physical, reviewed labs and image studies, discussed the case with the resident Dr. Pittman and agree with the findings and care plan. CBC Results Results Complete Blood Count Results: RBC 4.02 M/uL (4.2-5.4) L 12/25/19 WBC 9.73 K/uL (4.8-10.8) 12/25/19 Hgb 12.8 g/dL (12.0-16.0) 12/25/19 Hct 36.4 % (37-47) L 12/25/19 Plt Count 209 K/uL (130-400) 12/25/19 Results BMP Results: Sodium 141 mmol/L (136-145) 12/25/19 Potassium 3.7 mmol/L (3.5-5.1) 12/25/19 Chloride 113 mmol/L (98-107) H 12/25/19 BUN 9 mg/dl (7-18) 12/25/19 Creatinine 0.54 mg/dl (0.6-1.2) L 12/25/19 Glucose 126 mg/dl (70-99) H 12/25/19 Resident Activity Tracking Resident Involvement: Resident Care Provided Care Provided: Adult Hospital Medicine
--- NOTE | 2020-01-08 09:02 | Coding Query ---
CODING QUERY To promote full compliance with coding requirements relating to patient care, provider participation is requested in all cases of math and science instructor uncertainty. Please assist us with the question(s) below: Coding Question(s): Cholangitis is documented in the record and on the Discharge Summary with ERCP finding documenting, "Pus was seen in the major papilla consistent with acute cholangitis". The Discharge Summary documents SIRS due to Cholangitis w/ obstructing biliary stones. For correct coding purposes, your clinical opinion is needed to determine if Cholangitis w/ obstructing biliary stones is an infectious source or a non-infectious source. Please indicate below, in your clinical opinion. (x ) Cholangitis w/ obstructing biliary stones is an Infectious source ( ) Cholangitis w/ obstructing biliary stones is a Non-infectious source ( ) Other: Please Specify Physician's Response(s): Thank you Carrol Silva Principal Diagnosis: "that condition established after study, to be chiefly responsible for occasioning the admission of the patient to the hospital for care." Co-Existing Principal Diagnosis: "when two or more diagnoses equally meet the criteria for principal diagnosis as determined by the circumstances of admission, diagnostic work up, and/or therapy provided, and the Alphabetic Index, Tabular List, or another coding guideline does not provide sequencing direction, any one of the diagnoses may be sequenced first." "When the physician has documented what appears to be a current diagnosis in the body of the record, but has not included the diagnosis in the final diagnostic statement, the physician should be asked whether the diagnosis should be added." (Source [facility] 2 QTR90. p3-4) MAGDID
== END 2019-12-25 17:32 | disposition home or self-care (01) | DRG 445 ==
LOC: ED 16:36 → SUATTDRO 18:24 → 2W 18:24 → 2N 23:30 → 3W 12-25 00:52